=== PATIENT | female | born 1955 | race Asian ===

== ENCOUNTER → 2018-01-17 14:56 | Outpatient (CLI) | payer MEDICARE, SELFPAY ==
[2018-01-17 16:02] LABS: Alanine Aminotransferase 20 IU/L (9-52); Aspartate Aminotransferase 31 IU/L (14-36); BUN Creatinine Ratio 17.1 (6-22); Blood Urea Nitrogen 12 mg/dL (7-17); Calcium 9.6 mg/dL (8.4-10.2); Carbon Dioxide 27 mmol/L (22-32); Chloride 101 mmol/L (98-107); Cholesterol 109 mg/dL (140-199); Estimated Glomerular Filt Rate > 60.0 mL/min (>60); Glucose 83 mg/dL (80-110); HDL Cholesterol 40 mg/dL (40-60); HEMOLYSIS < 15 (0-50); LDL Cholesterol Calculated 49 mg/dL (<100); Potassium 4.2 mmol/L (3.4-5.1); Sodium 140 mmol/L (137-145); Triglycerides 99 mg/dL (35-150)
[2018-01-17 16:32] LABS: TSH w/ Reflex to FT4 1.41 uIU/mL (0.47-4.68)
== END ==
PROVIDERS: Visit Provider Internal Medicine
DX: I10 Essential (primary) hypertension (principal); E03.9 Hypothyroidism, unspecified; E78.5 Hyperlipidemia, unspecified
CPT/HCPCS: 36415; 80048; 80061; 84443; 84450; 84460

== ENCOUNTER 2018-09-08 15:17 | Inpatient (IN) | payer OTHER, SELFPAY ==
[2018-09-08] VITALS (10 sets, daily range): BP systolic 134–167; BP diastolic 66–96; PULSE 70–88; RESP 14–20; O2SAT 96–98; BMI 21.3
--- NOTE | 2018-09-08 | DI.MRI.S_ITS ---
PROCEDURE: MR STROKE Pre- and post-contrast brain MRI, non-contrast brain MR angiogram, pre- and postcontrast neck MR angiogram INDICATIONS: Left sided numbness TECHNIQUE: Brain: Noncontrast axial T1 spin echo, axial T2 fast spin echo, sagittal and axial FLAIR, coronal T2 fast spin echo, axial gradient echo, axial diffusion and ADC through the brain. After the administration of contrast, axial 3D VIBE of the cranial vasculature and brain. Brain MRA: Non-contrast 3-D time of flight MR angiogram, with multiple qkljyob-pavcyksun-czptaffymt (MIP) reformats performed. Neck MRA: Axial and sagittal TruFISP through the neck. Coronal dynamic MR angiogram during administration of contrast in the arterial and venous phases, with 3-dimenstional stxxpgl-fzlxvovko-fckdpbiulw (MIP) reformats constructed from subtraction images. COMPARISON: None. FINDINGS: Image quality: Excellent. BRAIN: CSF spaces: Ventricles are normal in size and shape. Basal cisterns are patent. No extra-axial fluid collections. Brain: No intracranial bleeds or mass effects. Carbone-white matter interface is normal. Diffusion weighted images show no left-sided acute ischemic insults, but there is a 4 x 6 mm focus of acute or subacute ischemic injury involving the deep white matter of the lentiform nuclei on the right, best seen on diffusion pulse sequence series 26 image 61. More anteriorly a chronic-appearing small lacunar infarction in this area is seen, and these areas show no evidence of mass effect or blood products.. Brainstem appears normal. Normal intravascular flow voids are present. No abnormal intracranial enhancement. Skull and face: Calvarial marrow signal is normal. Orbits appear normal. Sinuses: Sinuses and mastoids are clear. BRAIN MR ANGIOGRAM: Anterior circulation: Intracranial internal carotid arteries are normal in size and enhancement. The flow within the paired anterior cerebral arteries is normal and symmetric. The flow within the middle cerebral arteries is normal and symmetric. The anterior communicating artery is seen. No stenoses, occlusions, or aneurysms. Posterior circulation: The visualized portions of the vertebral arteries demonstrate normal caliber, and join to form a normal appearing basilar artery. The flow within the posterior cerebral arteries is normal and symmetric. No stenoses, occlusions, or aneurysms. NECK MR ANGIOGRAM: Carotids: Great vessels demonstrate a conventional anatomy as they arise from the aortic arch. The origins of the common carotid arteries appear patent. The calibers and courses of both common carotid arteries are normal. The bifurcation regions appear normal bilaterally. The internal carotid arteries demonstrate normal course and caliber. Posterior circulation: The origins of the vertebral arteries appear patent. More superior portions of both vertebral arteries demonstrate normal course and caliber, and join to form a normal appearing basilar artery. Miscellaneous: Subclavian arteries appear patent. Pre-contrast images through the neck show no soft tissue abnormalities. IMPRESSION: BRAIN MRI: Mild/moderate microvascular atherosclerotic change noted within the deep white matter of the right hemisphere, lentiform nuclei region, where a 4 x 6 mm focus of acute or subacute ischemic injury is present as discussed above. A chronic small additional lacunar infarction on the right is noted more anteriorly, and the appearance is most consistent with primary microvascular atherosclerotic change rather than embolic disease. No mass effect or hemorrhage associated. BRAIN MR ANGIOGRAM: Normal intracranial MR angiogram, normal anatomic variant left vertebral artery dominant into the posterior circulation. NECK MR ANGIOGRAM: No carotid stenosis, great vessels appear intact and patent. Dictated by: Russ Swartz M.D. on 09/09/2018 at 15:56 Approved by: Russ Swartz M.D. on 09/09/2018 at 16:00
--- NOTE | 2018-09-08 | DI.ECHO.S_ITS ---
[facility]---------+ [facility] +---------+ : : [address] [place] : : : : [id number] : : : : Phone: [phone]+ Echocardiogram Report + + :Name: THERESE BABIN Study Date: 09/09/2018 Height: 61 in : :[facility] Exam Location: [facility] Weight: 128 lb : : Gender: Female BSA: 1.6 m2 : :: 1955 Age: 62 yrs BP: 168/86 mmHg: :Reason For Study: CVA : :Ordering Physician: Lois : :Hospitalist Performed By: Peggy Page : :Referring: Nisha FRANKLIN E : + + Interpretation Summary Normal left ventricle size with ejection fraction 65-70%. Severely dilated left atrium. Mild mitral regurgitation. Injection of contrast documented no interatrial shunt. Procedure: A two-dimensional transthoracic echocardiogram with color flow and Doppler was performed. The study quality was technically adequate. There is no prior echocardiogram noted for this patient. The subcostal views were difficult to obtain and are suboptimal in quality. A saline contrast injection was performed to assess for cardiac shunting. The patient was in normal sinus rhythm during the exam. Left Ventricle: The left ventricle is normal in size. Left ventricular wall thickness is normal. The ejection fraction is estimated to be 65-70%. There are no focal wall motion abnormalities. Diastolic parameters suggest probable normal left ventricular diastolic function and normal filling pressures. Right Ventricle: The right ventricle is normal in size and function. Atria: The left atrium is severely dilated. Right atrial size is normal. There is no Doppler evidence for an interatrial shunt. Injection of contrast documented no interatrial shunt. Mitral Valve: The mitral valve is normal in structure and function. There is mild mitral regurgitation. Aortic Valve: The aortic valve is trileaflet. The aortic valve opens well. There is trace aortic regurgitation. Tricuspid Valve: The tricuspid valve is normal in structure and function. There is trace tricuspid regurgitation. Pulmonary artery pressures cannot be estimated because of the lack of a measurable TR jet velocity. Pulmonic Valve: The pulmonic valve is not well visualized. There is trace pulmonic regurgitation. Great Vessels: The aortic root is normal size. The ascending aorta is normal in size. The pulmonary artery is not well visualized, but is probably normal size. The inferior vena cava was not visualized. Pericardium/ Pleura There is no pericardial effusion. There is no pleural effusion. MMode/2D Measurements & Calculations LVIDd: 4.0 cm Ao root diam: 3.0 cm LVIDs: 2.0 cm asc Aorta Diam: 3.0 cm FS: 48.6 % EPSS: 0.05 cm IVSd: 0.67 cm LVPWd: 0.81 cm LV garcia. diameter/BSA (cm/m^2): 2.5 LV sys. diameter/BSA (cm/m^2): 1.3 LA A2 area: 24.4 cm2 RA long axis: 5.1 cm LA A4 area: 21.2 cm2 RA area: 15.0 cm2 LA length (vol): 5.3 cm RA vol: 37.8 ml LA vol: 82.9 ml RA : 24.2 ml/m2 LA vol index: 53.0 ml/m2 RVD1 (basal): 3.3 cm TAPSE: 2.0 cm Doppler Measurements & Calculations Ao V2 max: 95.4 cm/sec LVOT Max Luis Carlos: 98.8 cm/sec Ao V2 mean: 70.3 cm/sec LV V1 max P.9 mmHg Ao max P.6 mmHg LV V1 VTI: 19.9 cm Ao mean P.1 mmHg sev ratio: 0.96 Ao V2 VTI: 20.7 cm MV E max luis carlos: 69.2 cm/sec PA V2 max: 68.7 cm/sec MV A max luis carlos: 74.7 cm/sec PA V2 mean: 46.2 cm/sec MV E/A: 0.93 PA mean P.94 mmHg Med Peak E' Luis Carlos: 4.6 cm/sec PA pr(Accel): 9.1 mmHg E/E' med: 14.9 PA Accel Time: 0.04 sec Lat Peak E' Luis Carlos: 9.0 cm/sec E/E' lat: 7.7 E/e' average: 11.3 MV dec time: 0.12 sec MV P1/2t: 41.5 msec MV P1/2t max luis carlos: 73.7 cm/sec MVA(P1/2t): 5.3 cm2 Electronically signed by: Ashlie Mcdermott on Reading Physician:09/09/2018 12:43 PM
--- NOTE | 2018-09-08 15:30 | ED.NEUROSD ---
HPI - Neuro Symptoms/Deficit General Chief Complaint: Neuro Symptoms/Deficit Stated Complaint: right side face and body numbness and tingling Time Seen by Provider: 09/08/18 15:20 Source: patient and family Mode of arrival: wheelchair Limitations: no limitations History of Present Illness HPI Narrative: 62F non smoker with history of CVA presents with L facial weakness, numbness, and L arm / L leg numbness and tingling since yesterday morning. She denies any difficulty with vision speech or ambulation. Her last stroke was in 1999 and only symptoms were of left-sided facial numbness and tingling. There was a delay in her presentation as she seems to be suffering from some depression and rarely gets out of bed and so it was unclear until today that she had ongoing symptoms Onset (ago): hour(s) Timing confirmed by: spouse Location: left face, left arm and left leg History of same: Yes Severity: mild Quality: numb and tingling Relieving factors: none Exacerbating factors: none On Anticoagulants: No Associated symptoms: denies other symptoms Treatments Prior to Arrival: none Related Data Home Medications Medication Instructions Recorded Confirmed ASPIRIN (Aspirin Low Dose) 81 mg PO DAILY #0 03/16/08 09/08/18 calcium carbonate 1,500 mg PO QDAY #0 01/07/16 loratadine [Claritin] 10 mg PO QDAY #0 tab 01/07/16 losartan 25 mg PO DAILY 09/08/18 09/08/18 mirtazapine 15 mg PO DAILY 09/08/18 09/08/18 Previous Rx's Medication Instructions Recorded omeprazole 20 mg capsule,delayed 20 mg PO QDAY #30 cap 11/20/17 release bupropion HCl SR 100 mg tablet,12 100 mg PO Q DAY #30 tab 11/22/17 hr sustained-release diltiazem CD 120 mg 120 mg PO QDAY #30 cap 11/29/17 capsule,extended release 24 hr gemfibrozil 600 mg tablet 600 mg PO BIDAC #60 tab 12/17/17 oxybutynin chloride ER 15 mg 15 mg PO QDAY #30 tab 12/31/17 tablet,extended release 24 hr levothyroxine 75 mcg tablet 75 mcg PO QAM #30 tab 02/25/18 hydroxyzine pamoate 25 mg capsule 25 mg PO .hs #30 cap 05/13/18 Allergies Allergy/AdvReac Type Severity Reaction Status Date / Time codeine [CODEINE] Allergy Severe ANAPHYLAXIS Verified 09/08/18 15:49 hazelnut Allergy Severe Anaphylaxis Verified 09/08/18 15:43 Review of Systems Constitutional Denies chills, Denies fever(s), Denies lethargy and Denies weakness Eyes Denies change in vision, Denies eye discharge, Denies irritation and Denies loss of vision ENT Ears, Nose, Mouth, and Throat: Denies change in voice, Denies neck pain and Denies sore throat Cardiovascular Denies chest pain, Denies irregular heart rhythm, Denies lightheadedness, Denies palpitations, Denies dyspnea, Denies dyspnea on exertion and Denies orthopnea Respiratory Denies cough, Denies dyspnea, Denies dyspnea on exertion and Denies wheezing Gastrointestinal Gastrointestinal: Denies abdominal pain, Denies change in bowel habits, Denies diarrhea, Denies nausea and Denies vomiting Genitourinary Denies hematuria, Denies flank pain, Denies urinary incontinence and Denies urinary urgency Musculoskeletal Denies neck pain Integumentary/Breasts Denies pruritus, Denies erythema, Denies rash and Denies wounds Neurologic Denies confusion, Denies loss of vision, Reports sensory deficit and Denies weakness Psychiatric Denies anxiety, Denies confusion, Denies depression, Denies homicidal ideation and Denies suicidal ideation Endocrine Denies palpitations Hematologic/Lymphatic Denies easy bruising Allergic/Immunologic Denies wheezing Exam Narrative Exam Narrative: GENERAL: Pleasant 62-year-old female has a rather flat affect, and mild distress HEAD: Atraumatic. Normocephalic. No temporal or scalp tenderness. EYES: Pupils equal round and reactive. Extraocular motions intact. No scleral icterus. No injection or drainage. ENT: Nose without bleeding, purulent drainage or septal hematoma. Throat without erythema, tonsillar hypertrophy or exudate. Uvula midline. Airway patent. NECK: Trachea midline. No JVD or lymphadenopathy. Supple, nontender, no meningeal signs. CARDIOVASCULAR: Regular rate and rhythm without murmurs, gallops, or rubs. RESPIRATORY: Clear to auscultation. Breath sounds equal bilaterally. No wheezes, rales, or rhonchi. GASTROINTESTINAL: Abdomen soft, non-tender, nondistended. No hepato-splenomegaly, or palpable masses. No guarding. EXTREMITIES: No clubbing, cyanosis, or edema. No joint tenderness, effusion, or edema noted. BACK: Nontender without deformity or crepitance. No flank tenderness. NEURO: AOx3. SKIN: No rash or erythema. Initial Vital Signs Initial Vital Signs: Vital Signs Pulse Rate 88 09/08/18 15:23 Respiratory Rate 20 09/08/18 15:23 Blood Pressure 167/74 H 09/08/18 15:23 Pulse Oximetry 97 09/08/18 15:23 Scores NIH Stroke Scale Level of Conciousness: Alert, keenly responsive Ask month/age: Answers both questions correctly. Open/close eyes, close hand: Performs both tasks correctly Best gaze horizontal: Normal Visual mae: No visual loss Facial palsy: Normal symetrical movement Left arm drift: No drift for full 10 sec Right arm drift: No drift for full 10 sec Left leg drift: No drift for full 10 sec Right leg drift: No drift for full 10 sec Limb ataxia: Absent Sensory on face/arms/legs: Mild to moderate sensory loss, can tell touch Best language: No aphasia, normal Dysarthria: Normal Extinction or inattention: No abnormality Total NIH Stroke scale score: 1 Course Orders Ordered: ED Orders 09/08/18 15:39 CT head/brain wo con Stat Urine Drug Screen, Rapid Stat EKG-12 Lead Stat 09/08/18 15:42 Basic Metabolic Panel Stat Complete Blood Count AUTO DIFF Stat Partial Thromboplastin Time Stat Prothrombin Time INR Stat Sodium Chloride (Normal Saline 0.9%) 1,000 mls @ 150 mls/hr IV CONT ADILENE Last Admin: 09/08/18 16:08 Dose: 150 mls/hr Discontinued Medications Aspirin (Aspirin) 325 mg PO NOW ONE Stop: 09/08/18 16:34 Last Admin: 09/08/18 16:44 Dose: 325 mg Vital Signs - 8 hr 09/08/18 15:23 09/08/18 15:34 09/08/18 16:12 Pulse Rate 88 80 78 Respiratory Rate 20 16 18 Blood Pressure 167/74 H Blood Pressure [Right Arm] 167/74 H 163/69 H Pulse Oximetry 97 96 97 MDM - Neuro Symptoms/Deficit Lab Data Attestation: I reviewed the patient's lab results. Result diagrams: 09/08/18 15:42 09/08/18 15:42 Lab Results 09/08/18 09/08/1809/08/19 Range/Units 15:42 15:42 15:42 WBC 6.0 (4.5-11.0) X10^3/uL RBC 5.29 H (4.0-5.2) X10^6/uL Hgb 13.5 (12.0-16.0) g/dL Hct 41.2 (36-46) % MCV 77.9 L (80-100) fL MCH 25.5 L (26-34) PG MCHC 32.8 (30-36) % RDW 14.6 (11.6-14.8) % Plt Count 262 (150-400) X10^3/uL Neut % (Auto) 37.8 L (50-75) % Lymph % (Auto) 42.5 H (25-40) % Sanborn % (Auto) 9.1 (3-14) % Eos % (Auto) 8.8 H (2-4) % Baso % (Auto) 1.8 (0-2) % Neut # (Auto) 2300 (0030-9973) /uL Lymph # (Auto) 2600 (9125-8286) /uL Sanborn # (Auto) 500 (0-900) /uL Eos # (Auto) 500 H (0-450) /uL Baso # (Auto) 100 (0-100) /uL PT 14.0 H (10.1-12.7) SECONDS INR 1.2 (0.9-1.3) APTT 41 H (26.4-36.2) SECONDS Sodium 138 (137-145) mmol/L Potassium 3.9 (3.4-5.1) mmol/L Chloride 100 (98-107) mmol/L Carbon Dioxide 30 (22-32) mmol/L BUN 15 (7-17) mg/dL Creatinine 0.60 (0.52-1.04) mg/dL Estimated GFR > 60.0 (>60) mL/min BUN/Creatinine Ratio 25.0 H (6-22) Glucose 80 (80-110) mg/dL Calcium 9.6 (8.4-10.2) mg/dL Imaging Data CT scan - head: Attestation: I personally reviewed and interpreted this imaging study as follows: Radiologist's impression: [address] [address] [address] Scan Report Signed Patient: Tricia Rodriguez HMR#: [id number] : 7Acct:[id number] Age/Sex: 62 / FDate of Service: 09/08/18 Loc: ED Accession Number: [id number] Procedure: CT head/brain wo con Ordering Provider: Mason Cotton D.O. PROCEDURE: CT HEAD/BRAIN WO CON INDICATIONS: stroke. L facial numbness, L arm/L leg numbness TECHNIQUE: Noncontrast 4.5 mm thick angled axial sections acquired from the foramen magnum to the vertex, with coronal and sagittal reformats. For radiation dose reduction, the following was used: automated exposure control, adjustment of mA and/or kV according to patient size. COMPARISON: None. FINDINGS: Image quality: Excellent. CSF spaces: Basal cisterns are patent. No extra-axial fluid collections. Ventricles are normal in size and shape. Brain: No midline shift. No intracranial masses or hemorrhage. There is a 1.0 cm hypoattenuating focus within the right basal ganglia at the anterior aspect of the right thalamus and right internal capsule on axial image 14 of series 2, and 3 0.5 cm hypoechoic focus in the left basal ganglia near the left globus pallidus on axial image 13 of series 2, which are both present on comparison brain MRI of 09/18/2011. There are subtle high attenuation foci measuring up to 5 mm in size in the subcortical white matter of the left greater than right frontal lobes, with examples seen on axial image 18 of series 2. Skull and face: Calvarium and visualized facial bones are intact, without suspicious lesions. Sinuses: Visualized sinuses and mastoids are clear. IMPRESSION: 1. Subtle subcentimeter hyperattenuating foci in the subcortical white matter of the left greater than right frontal lobes. These may represent artifact or small volume petechial hemorrhage. Consider followup head CT to demonstrate stability or brain MRI if there is continued clinical concern. 2. Chronic bilateral basal ganglia lacunar infarcts are present on comparison exams. Findings discussed with referring provider Dr. Mason Cotton by telephone by Dr. Whittington at 4:15 PM on 09/08/2018. Dictated by: Vj Whittington M.D. on 09/08/2018 at 16:06 Approved by: Vj Whittington M.D. on 09/08/2018 at 16:19 Discharge Plan Departure Patient Disposition: Admitted as Observation Clinical Impression: Cerebrovascular accident Prescriptions: No Action ASPIRIN (Aspirin Low Dose) 81 mg PO DAILY Qty: 0 RF: 0 calcium carbonate 500 MG tablet 1,500 mg PO QDAY Qty: 0 RF: 0 loratadine [Claritin] 10 MG tablet 10 mg PO QDAY Qty: 0 RF: 0 omeprazole 20 mg capsule,delayed release(DR/EC) 20 mg PO QDAY Qty: 30 RF: 2 bupropion HCl [Wellbutrin SR] 100 mg tablet extended release 12 hr 100 mg PO Q DAY Qty: 30 RF: 0 diltiazem HCl 120 mg capsule,extended release 24hr 120 mg PO QDAY Qty: 30 RF: 0 gemfibrozil 600 mg tablet 600 mg PO BIDAC Qty: 60 RF: 1 oxybutynin chloride [Ditropan XL] 15 mg tablet extended release 24hr 15 mg PO QDAY Qty: 30 RF: 5 levothyroxine [Synthroid] 75 mcg tablet 75 mcg PO QAM Qty: 30 RF: 2 hydroxyzine pamoate 25 mg capsule 25 mg PO .hs Qty: 30 RF: 0 mirtazapine 15 mg tablet 15 mg PO DAILY RF: 0 losartan 25 mg PO DAILY RF: 0 Referrals: Jayleen Sheth DO [Primary Care Provider] -
--- NOTE | 2018-09-08 15:31 | PC.NURSE ---
pt arrived in room 11, ambulate with cane along with spouse reports, left upper lip with numbness, left arm/leg pins and needle sxs , since Sunday denies injuries. hx of cva 1999 with facial deficit, htn,high chol,high thyroid. spouse reports, pt since cva pt has been living seditary for the past 3 years. pt in between primary, Dr. Omer from [place].
--- NOTE | 2018-09-08 15:36 | ED_ITS ---
HPI - Neuro Symptoms/Deficit General Chief Complaint: Neuro Symptoms/Deficit Stated Complaint: right side face and body numbness and tingling Time Seen by Provider: 09/08/18 15:20 Source: patient and family Mode of arrival: wheelchair Limitations: no limitations History of Present Illness HPI Narrative: 62F non smoker with history of CVA presents with L facial weakness, numbness, and L arm / L leg numbness and tingling since yesterday morning. She denies any difficulty with vision speech or ambulation. Her last stroke was in 1999 and only symptoms were of left-sided facial numbness and tingling. There was a delay in her presentation as she seems to be suffering from some depression and rarely gets out of bed and so it was unclear until today that she had ongoing symptoms Onset (ago): hour(s) Timing confirmed by: spouse Location: left face, left arm and left leg History of same: Yes Severity: mild Quality: numb and tingling Relieving factors: none Exacerbating factors: none On Anticoagulants: No Associated symptoms: denies other symptoms Treatments Prior to Arrival: none Related Data Home Medications Medication Instructions Recorded Confirmed ASPIRIN (Aspirin Low Dose) 81 mg PO DAILY #0 03/16/08 09/08/18 calcium carbonate 1,500 mg PO QDAY #0 01/07/16 loratadine [Claritin] 10 mg PO QDAY #0 tab 01/07/16 losartan 25 mg PO DAILY 09/08/18 09/08/18 mirtazapine 15 mg PO DAILY 09/08/18 09/08/18 Previous Rx's Medication Instructions Recorded omeprazole 20 mg capsule,delayed 20 mg PO QDAY #30 cap 11/20/17 release bupropion HCl SR 100 mg tablet,12 100 mg PO Q DAY #30 tab 11/22/17 hr sustained-release diltiazem CD 120 mg 120 mg PO QDAY #30 cap 11/29/17 capsule,extended release 24 hr gemfibrozil 600 mg tablet 600 mg PO BIDAC #60 tab 12/17/17 oxybutynin chloride ER 15 mg 15 mg PO QDAY #30 tab 12/31/17 tablet,extended release 24 hr levothyroxine 75 mcg tablet 75 mcg PO QAM #30 tab 02/25/18 hydroxyzine pamoate 25 mg capsule 25 mg PO .hs #30 cap 05/13/18 Allergies Allergy/AdvReac Type Severity Reaction Status Date / Time codeine [CODEINE] Allergy Severe ANAPHYLAXIS Verified 09/08/18 15:49 hazelnut Allergy Severe Anaphylaxis Verified 09/08/18 15:43 Review of Systems Constitutional Denies chills, Denies fever(s), Denies lethargy and Denies weakness Eyes Denies change in vision, Denies eye discharge, Denies irritation and Denies loss of vision ENT Ears, Nose, Mouth, and Throat: Denies change in voice, Denies neck pain and Denies sore throat Cardiovascular Denies chest pain, Denies irregular heart rhythm, Denies lightheadedness, Denies palpitations, Denies dyspnea, Denies dyspnea on exertion and Denies orthopnea Respiratory Denies cough, Denies dyspnea, Denies dyspnea on exertion and Denies wheezing Gastrointestinal Gastrointestinal: Denies abdominal pain, Denies change in bowel habits, Denies diarrhea, Denies nausea and Denies vomiting Genitourinary Denies hematuria, Denies flank pain, Denies urinary incontinence and Denies urinary urgency Musculoskeletal Denies neck pain Integumentary/Breasts Denies pruritus, Denies erythema, Denies rash and Denies wounds Neurologic Denies confusion, Denies loss of vision, Reports sensory deficit and Denies weakness Psychiatric Denies anxiety, Denies confusion, Denies depression, Denies homicidal ideation and Denies suicidal ideation Endocrine Denies palpitations Hematologic/Lymphatic Denies easy bruising Allergic/Immunologic Denies wheezing Exam Narrative Exam Narrative: GENERAL: Pleasant 62-year-old female has a rather flat affect, and mild distress HEAD: Atraumatic. Normocephalic. No temporal or scalp tenderness. EYES: Pupils equal round and reactive. Extraocular motions intact. No scleral icterus. No injection or drainage. ENT: Nose without bleeding, purulent drainage or septal hematoma. Throat without erythema, tonsillar hypertrophy or exudate. Uvula midline. Airway patent. NECK: Trachea midline. No JVD or lymphadenopathy. Supple, nontender, no meningeal signs. CARDIOVASCULAR: Regular rate and rhythm without murmurs, gallops, or rubs. RESPIRATORY: Clear to auscultation. Breath sounds equal bilaterally. No wheezes, rales, or rhonchi. GASTROINTESTINAL: Abdomen soft, non-tender, nondistended. No hepato-splen omegaly, or palpable masses. No guarding. EXTREMITIES: No clubbing, cyanosis, or edema. No joint tenderness, effusion, or edema noted. BACK: Nontender without deformity or crepitance. No flank tenderness. NEURO: AOx3. SKIN: No rash or erythema. Initial Vital Signs Initial Vital Signs: Vital Signs Pulse Rate 88 09/08/18 15:23 Respiratory Rate 20 09/08/18 15:23 Blood Pressure 167/74 H 09/08/18 15:23 Pulse Oximetry 97 09/08/18 15:23 Scores NIH Stroke Scale Level of Conciousness: Alert, keenly responsive Ask month/age: Answers both questions correctly. Open/close eyes, close hand: Performs both tasks correctly Best gaze horizontal: Normal Visual mae: No visual loss Facial palsy: Normal symetrical movement Left arm drift: No drift for full 10 sec Right arm drift: No drift for full 10 sec Left leg drift: No drift for full 10 sec Right leg drift: No drift for full 10 sec Limb ataxia: Absent Sensory on face/arms/legs: Mild to moderate sensory loss, can tell touch Best language: No aphasia, normal Dysarthria: Normal Extinction or inattention: No abnormality Total NIH Stroke scale score: 1 Course Orders Ordered: ED Orders 09/08/18 15:39 CT head/brain wo con Stat Urine Drug Screen, Rapid Stat EKG-12 Lead Stat 09/08/18 15:42 Basic Metabolic Panel Stat Complete Blood Count AUTO DIFF Stat Partial Thromboplastin Time Stat Prothrombin Time INR Stat Sodium Chloride (Normal Saline 0.9%) 1,000 mls @ 150 mls/hr IV CONT ADILENE Last Admin: 09/08/18 16:08 Dose: 150 mls/hr Discontinued Medications Aspirin (Aspirin) 325 mg PO NOW ONE Stop: 09/08/18 16:34 Last Admin: 09/08/18 16:44 Dose: 325 mg Vital Signs - 8 hr 09/08/18 15:23 09/08/18 15:34 09/08/18 16:12 Pulse Rate 88 80 78 Respiratory Rate 20 16 18 Blood Pressure 167/74 H Blood Pressure [Right Arm] 167/74 H 163/69 H Pulse Oximetry 97 96 97 MDM - Neuro Symptoms/Deficit Lab Data Attestation: I reviewed the patient's lab results. Result diagrams: 09/08/18 15:42 09/08/18 15:42 Lab Results 0409/08/18 09/08/18 Range/Units 15:42 15:42 15:42 WBC 6.0 (4.5-11.0) X10^3/uL RBC 5.29 H (4.0-5.2) X10^6/uL Hgb 13.5 (12.0-16.0) g/dL Hct 41.2 (36-46) % MCV 77.9 L (80-100) fL MCH 25.5 L (26-34) PG MCHC 32.8 (30-36) % RDW 14.6 (11.6-14.8) % Plt Count 262 (150-400) X10^3/uL Neut % (Auto) 37.8 L (50-75) % Lymph % (Auto) 42.5 H (25-40) % [place] % (Auto) 9.1 (3-14) % Eos % (Auto) 8.8 H (2-4) % Baso % (Auto) 1.8 (0-2) % Neut # (Auto) 2300 (1894-6183) /uL Lymph # (Auto) 2600 (0916-2714) /uL [place] # (Auto) 500 (0-900) /uL Eos # (Auto) 500 H (0-450) /uL Baso # (Auto) 100 (0-100) /uL PT 14.0 H (10.1-12.7) SECONDS INR 1.2 (0.9-1.3) APTT 41 H (26.4-36.2) SECONDS Sodium 138 (137-145) mmol/L Potassium 3.9 (3.4-5.1) mmol/L Chloride 100 (98-107) mmol/L Carbon Dioxide 30 (22-32) mmol/L BUN 15 (7-17) mg/dL Creatinine 0.60 (0.52-1.04) mg/dL Estimated GFR > 60.0 (>60) mL/min BUN/Creatinine Ratio 25.0 H (6-22) Glucose 80 (80-110) mg/dL Calcium 9.6 (8.4-10.2) mg/dL Imaging Data CT scan - head: Attestation: I personally reviewed and interpreted this imaging study as follows: Radiologist's impression: [address] [address] [address] Scan Report Signed Patient: Tricia Rodriguez R#: [id number] : 7Acct:[id number] Age/Sex: 62 / FDate of Service: 09/08/18 Loc: ED Accession Number: [id number] Procedure: CT head/brain wo con Ordering Provider: Mason Cotton D.O. PROCEDURE: CT HEAD/BRAIN WO CON INDICATIONS: stroke. L facial numbness, L arm/L leg numbness TECHNIQUE: Noncontrast 4.5 mm thick angled axial sections acquired from the foramen magnum to the vertex, with coronal and sagittal reformats. For radiation dose reduction, the following was used: automated exposure control, adjustment of mA and/or kV according to patient size. COMPARISON: None. FINDINGS: Image quality: Excellent. CSF spaces: Basal cisterns are patent. No extra-axial fluid collections. Ventricles are normal in size and shape. Brain: No midline shift. No intracranial masses or hemorrhage. There is a 1.0 cm hypoattenuating focus within the right basal ganglia at the anterior aspect of the right thalamus and right internal capsule on axial image 14 of series 2, and 3 0.5 cm hypoechoic focus in the left basal ganglia near the left globus pallidus on axial image 13 of series 2, which are both present on comparison brain MRI of 09/18/2011. There are subtle high attenuation foci measuring up to 5 mm in size in the subcortical white matter of the left greater than right frontal lobes, with examples seen on axial image 18 of series 2. Skull and face: Calvarium and visualized facial bones are intact, without s uspicious lesions. Sinuses: Visualized sinuses and mastoids are clear. IMPRESSION: 1. Subtle subcentimeter hyperattenuating foci in the subcortical white matter of the left greater than right frontal lobes. These may represent artifact or small volume petechial hemorrhage. Consider followup head CT to demonstrate stability or brain MRI if there is continued clinical concern. 2. Chronic bilateral basal ganglia lacunar infarcts are present on comparison exams. Findings discussed with referring provider Dr. Mason Cotton by telephone by Dr. Whittington at 4:15 PM on 09/08/2018. Dictated by: Vj Whittington M.D. on 09/08/2018 at 16:06 Approved by: Vj Whittington M.D. on 09/08/2018 at 16:19 Discharge Plan Departure Patient Disposition: Admitted as Observation Clinical Impression: Cerebrovascular accident Prescriptions: No Action ASPIRIN (Aspirin Low Dose) 81 mg PO DAILY Qty: 0 RF: 0 calcium carbonate 500 MG tablet 1,500 mg PO QDAY Qty: 0 RF: 0 loratadine [Claritin] 10 MG tablet 10 mg PO QDAY Qty: 0 RF: 0 omeprazole 20 mg capsule,delayed release(DR/EC) 20 mg PO QDAY Qty: 30 RF: 2 bupropion HCl [Wellbutrin SR] 100 mg tablet extended release 12 hr 100 mg PO Q DAY Qty: 30 RF: 0 diltiazem HCl 120 mg capsule,extended release 24hr 120 mg PO QDAY Qty: 30 RF: 0 gemfibrozil 600 mg tablet 600 mg PO BIDAC Qty: 60 RF: 1 oxybutynin chloride [Ditropan XL] 15 mg tablet extended release 24hr 15 mg PO QDAY Qty: 30 RF: 5 levothyroxine [Synthroid] 75 mcg tablet 75 mcg PO QAM Qty: 30 RF: 2 hydroxyzine pamoate 25 mg capsule 25 mg PO .hs Qty: 30 RF: 0 mirtazapine 15 mg tablet 15 mg PO DAILY RF: 0 losartan 25 mg PO DAILY RF: 0 Referrals: Jayleen Sheth DO [Primary Care Provider] -
--- NOTE | 2018-09-08 15:39 | DI.CT.S_ITS ---
PROCEDURE: CT HEAD/BRAIN WO CON INDICATIONS: stroke. L facial numbness, L arm/L leg numbness TECHNIQUE: Noncontrast 4.5 mm thick angled axial sections acquired from the foramen magnum to the vertex, with coronal and sagittal reformats. For radiation dose reduction, the following was used: automated exposure control, adjustment of mA and/or kV according to patient size. COMPARISON: None. FINDINGS: Image quality: Excellent. CSF spaces: Basal cisterns are patent. No extra-axial fluid collections. Ventricles are normal in size and shape. Brain: No midline shift. No intracranial masses or hemorrhage. There is a 1.0 cm hypoattenuating focus within the right basal ganglia at the anterior aspect of the right thalamus and right internal capsule on axial image 14 of series 2, and 3 0.5 cm hypoechoic focus in the left basal ganglia near the left globus pallidus on axial image 13 of series 2, which are both present on comparison brain MRI of 09/18/2011. There are subtle high attenuation foci measuring up to 5 mm in size in the subcortical white matter of the left greater than right frontal lobes, with examples seen on axial image 18 of series 2. Skull and face: Calvarium and visualized facial bones are intact, without suspicious lesions. Sinuses: Visualized sinuses and mastoids are clear. IMPRESSION: 1. Subtle subcentimeter hyperattenuating foci in the subcortical white matter of the left greater than right frontal lobes. These may represent artifact or small volume petechial hemorrhage. Consider followup head CT to demonstrate stability or brain MRI if there is continued clinical concern. 2. Chronic bilateral basal ganglia lacunar infarcts are present on comparison exams. Findings discussed with referring provider Dr. Mason Cotton by telephone by Dr. Whittington at 4:15 PM on 09/08/2018. Dictated by: Vj Whittington M.D. on 09/08/2018 at 16:06 Approved by: Vj Whittington M.D. on 09/08/2018 at 16:19
[2018-09-08 15:52] LABS: Add Manual Diff / Slide Review NO; Basophils Absolute Auto 100 /uL (0-100); Basophils Percent Auto 1.8 % (0-2); Eosinophils Absolute Auto 500 /uL (0-450); Eosinophils Percent Auto 8.8 % (2-4); Hematocrit 41.2 % (36-46); Hemoglobin 13.5 g/dL (12.0-16.0); Lymphocytes Absolute Auto 2600 /uL (1100-4500); Lymphocytes Percent Auto 42.5 % (25-40); Mean Corpuscular HGB Conc 32.8 % (30-36); Mean Corpuscular Hemoglobin 25.5 PG (26-34); Mean Corpuscular Volume 77.9 fL (80-100); Monocytes Absolute Auto 500 /uL (0-900); Monocytes Percent Auto 9.1 % (3-14); Neutrophils Absolute Auto 2300 /uL (1500-7000); Neutrophils Percent Auto 37.8 % (50-75); Platelet Count 262 X10^3/uL (150-400); Red Blood Cell Count 5.29 X10^6/uL (4.0-5.2); Red Cell Distribution Width 14.6 % (11.6-14.8)
[2018-09-08 15:57] LABS: INR 1.2 (0.9-1.3)
[2018-09-08 16:00] LABS: PTT Partial Thromboplastin Tim 41 SECONDS (26.4-36.2)
[2018-09-08 16:01] LABS: Blood Urea Nitrogen 15 mg/dL (7-17); Calcium 9.6 mg/dL (8.4-10.2); Carbon Dioxide 30 mmol/L (22-32); Chloride 100 mmol/L (98-107); Estimated Glomerular Filt Rate > 60.0 mL/min (>60); Glucose 80 mg/dL (80-110); HEMOLYSIS < 15 (0-50); Potassium 3.9 mmol/L (3.4-5.1); Sodium 138 mmol/L (137-145)
[2018-09-08] MEDS: SODIUM CHLORIDE 0.9% 1,000 ML 150 ML IV (16:08)
[2018-09-08] MEDS: ASPIRIN 325 MG TABLET PO (16:44)
--- NOTE | 2018-09-08 17:11 | PM.HP.1 ---
History of Present Illness Date Patient Seen: 09/08/18 Time Patient Seen: 17:22 Chief complaint: right side face and body numbness and tingling Narrative: This is a 62-year-old chronically ill female who presents with approximately 36 hours of left-sided tingling and numbness. She has been ?bed ridden,? for 15 years according to her . She explains that she becomes too tired to do much and so just stays in bed. At 1 point she was thought to have sarcoid but that was apparently ruled out. They do not remember any workup for myasthenia. Yesterday morning she apparently began feeling tingling and numbness on the entirety of her left arm and left leg along with a small area on the left lower lip. She did not mention it to her until today. She has a prior history of stroke that she says caused facial drooping, she can't remember which side, which she says was diagnosed by her chiropractor. This was in approximately 1999. She is treated for hypertension and hyperlipidemia, she also has a family history of stroke and heart disease in her father. There has been no headache, seizure activity, vomiting, trouble talking, trouble walking, trouble swallowing. She takes her blood pressure and cholesterol medicine faithfully. Her insurance, [employer], has forced her to change her primary care physician to a new physician in [place], an hours drive away, who she has not seen yet, Dr. Samuel Burks. The head CT suggests a possible hyper attenuating foci in the bilateral frontal lobes. There are also bilateral chronic lacunar infarcts. Patient History Medical History Fatigue (Acute) Hypothyroidism (acquired) (Acute) CVA (cerebral vascular accident) (Acute) Insomnia (Acute) Mixed hyperlipidemia (Acute) Family & Social History Family History (Updated 09/08/18 @ 17:13 by Nisha Alexis MD) Father CVA (cerebral vascular accident) CAD (coronary artery disease) Mother Thyroid cancer Social History: She does not smoke cigarettes, drink alcohol or use marijuana and other drugs. 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 Her is present. Meds Home Medications Medication Instructions Recorded Confirmed Type ASPIRIN (Aspirin Low Dose) 81 mg PO DAILY #0 03/16/08 09/08/18 History calcium carbonate 1,500 mg PO QDAY #0 01/07/16 History loratadine [Claritin] 10 mg PO QDAY #0 tab 01/07/16 History omeprazole 20 mg capsule,delayed 20 mg PO QDAY #30 cap 11/20/17 09/08/18 Rx release bupropion HCl SR 100 mg tablet,12 100 mg PO Q DAY #30 tab 11/22/17 Rx hr sustained-release diltiazem CD 120 mg 120 mg PO QDAY #30 cap 11/29/17 Rx capsule,extended release 24 hr gemfibrozil 600 mg tablet 600 mg PO BIDAC #60 tab 12/17/17 Rx oxybutynin chloride ER 15 mg 15 mg PO QDAY #30 tab 12/31/17 09/08/18 Rx tablet,extended release 24 hr levothyroxine 75 mcg tablet 75 mcg PO QAM #30 tab 02/25/18 09/08/18 Rx hydroxyzine pamoate 25 mg capsule 25 mg PO .hs #30 cap 05/13/18 09/08/18 Rx losartan 25 mg PO DAILY 09/08/18 09/08/18 History mirtazapine 15 mg PO DAILY 09/08/18 09/08/18 History Allergies Allergy/AdvReac Type Severity Reaction Status Date / Time codeine [CODEINE] Allergy Severe ANAPHYLAXIS Verified 09/08/18 15:49 hazelnut Allergy Severe Anaphylaxis Verified 09/08/18 15:43 Review of Systems Review of Systems Positive for fatigue, numbness and tingling on the left side of her body and left lip, insomnia. Negative for fevers, chills, sweats, coughing, chest pain, abdominal pain, nausea, vomiting, diarrhea, bleeding, dysuria, rash, joint pain, seizures, headaches, trouble talking, new allergies. Exam Vital Signs (past 8 hours): - 09/08/18 15:23 09/08/18 15:34 09/08/18 16:12 Pulse Rate 88 80 78 Respiratory Rate 20 16 18 Blood Pressure 167/74 H Blood Pressure [Right Arm] 167/74 H 163/69 H Pulse Oximetry 97 96 97 09/08/18 16:30 Pulse Rate 78 Respiratory Rate 18 Blood Pressure Blood Pressure [Right Arm] 156/69 H Pulse Oximetry 98 Oxygen Delivery Method Room Air Narrative Exam Narrative: She is alert and oriented x3, in no apparent distress. She has a very flat affect consistent with frontal lobe lesions, depression, chronic fatigue. Pupils are equally round and reactive to light and accommodation. Extraocular muscles are intact. Sclerae are pink and nonicteric. Throat looks normal. No lymph nodes are felt head, neck, supraclavicular area. There is no thyromegaly. JVD is less than 6 cm. No carotid bruits are heard. Heart is regular rate and rhythm without murmur. Lungs are clear to auscultation bilaterally. Abdomen is soft, bowel sounds positive, nontender, no organomegaly. Extremities have no ankle edema. Skin has no rash or jaundice. Neuro exam. Cranial nerves 2-12 tested intact. Motor function is 5/5 throughout without lateralizing deficit. DTRs are symmetric bilaterally. Babinski's are downgoing bilaterally. The patient is too fatigued to stand up, test balance etc. There is no objective difference in sensation but the patient describes a very small area of left lower lip numbness to touch and diffuse left arm and left leg numbness to touch along with tingling. Objective Imaging CT scan - head: Radiologist's impression: PROCEDURE: CT HEAD/BRAIN WO CON INDICATIONS: stroke. L facial numbness, L arm/L leg numbness TECHNIQUE: Noncontrast 4.5 mm thick angled axial sections acquired from the foramen magnum to the vertex, with coronal and sagittal reformats. For radiation dose reduction, the following was used: automated exposure control, adjustment of mA and/or kV according to patient size. COMPARISON: None. FINDINGS: Image quality: Excellent. CSF spaces: Basal cisterns are patent. No extra-axial fluid collections. Ventricles are normal in size and shape. Brain: No midline shift. No intracranial masses or hemorrhage. There is a 1.0 cm hypoattenuating focus within the right basal ganglia at the anterior aspect of the right thalamus and right internal capsule on axial image 14 of series 2, and 3 0.5 cm hypoechoic focus in the left basal ganglia near the left globus pallidus on axial image 13 of series 2, which are both present on comparison brain MRI of 09/18/2011. There are subtle high attenuation foci measuring up to 5 mm in size in the subcortical white matter of the left greater than right frontal lobes, with examples seen on axial image 18 of series 2. Skull and face: Calvarium and visualized facial bones are intact, without suspicious lesions. Sinuses: Visualized sinuses and mastoids are clear. IMPRESSION: 1. Subtle subcentimeter hyperattenuating foci in the subcortical white matter of the left greater than right frontal lobes. These may represent artifact or small volume petechial hemorrhage. Consider followup head CT to demonstrate stability or brain MRI if there is continued clinical concern. 2. Chronic bilateral basal ganglia lacunar infarcts are present on comparison exams. Findings discussed with referring provider Dr. Mason Cotton by telephone by Dr. Whittington at 4:15 PM on 09/08/2018. Dictated by: Vj Whittington M.D. on 09/08/2018 at 16:06 Labs Result Diagrams: 09/08/18 15:42 09/08/18 15:42 Labs: Laboratory Results - last 24 hr 09/08/18 09/08/18 09/08/18 15:42 15:42 15:42 WBC 6.0 RBC 5.29 H Hgb 13.5 Hct 41.2 MCV 77.9 L MCH 25.5 L MCHC 32.8 RDW 14.6 Plt Count 262 Neut % (Auto) 37.8 L Lymph % (Auto) 42.5 H [place] % (Auto) 9.1 Eos % (Auto) 8.8 H Baso % (Auto) 1.8 Neut # (Auto) 2300 Lymph # (Auto) 2600 [place] # (Auto) 500 Eos # (Auto) 500 H Baso # (Auto) 100 PT 14.0 H INR 1.2 APTT 41 H Sodium 138 Potassium 3.9 Chloride 100 Carbon Dioxide 30 BUN 15 Creatinine 0.60 Estimated GFR > 60.0 BUN/Creatinine Ratio 25.0 H Glucose 80 Calcium 9.6 Assessment & Plan Assessment & Plan narrative: Probable CVA -MRI with MRA pending for tomorrow -echocardiogram pending for tomorrow -begin Plavix and continue aspirin -monitor on telemetry. -routine neuro checks. Left Sided Numbness/Tingling -see plan above -this has lasted for more than 24 hours, consistent with a neurological process that should be evident on MRI scanning tomorrow. Hypertension -continue low-dose losartan, with caution to allow permissive hypertension. Hypothyroidism -continue levothyroxine Hyperlipidemia -continue atorvastatin Chronic Fatigue/Insomnia -continue Remeron.
--- NOTE | 2018-09-08 17:19 | PC.NURSE ---
nurse to call back, for report.
--- NOTE | 2018-09-08 18:23 | PC.NURSE ---
attempt to call , rosenda states, she will call back,
[2018-09-08] MEDS: CLOPIDOGREL 75 MG TABLET PO (18:31)
--- NOTE | 2018-09-08 20:22 | PC.NURSE ---
184- Pt arrived to room 230 from ED via stretcher. A/O x3, Jp is with pt. Pt reports normal but weakness noted. Pt reports left lip, arm, and leg numbness. NIH score-0. BLE puffy edema, baseline. 98%RA, LS clear denies SOB. Hx CVA @ 2000, HTN and hyperdipidemia. BT+, denies nausea. Pt ambulates at home with cane, all day in house, but does not go out. 1PA FWW to BRP to void, but wears a brief for incontinence, which started a few months ago. HH diet, with lactose intolerance. CT or MRI and possible ECHO in AM. Bed alarm on for safety. Pt reports comfortable, watching TV.
[2018-09-08] MEDS: hydrOXYzine pamoate 25 MG CAPSULE PO (21:16)
[2018-09-09] VITALS (8 sets, daily range): BP systolic 137–186; BP diastolic 78–89; PULSE 75–90; RESP 15–20; TEMP 36.5–37.1; O2SAT 95–99
[2018-09-09] MEDS: SODIUM CHLORIDE 0.9% 1,000 ML 150 ML IV ×3 (00:25→12:56)
--- NOTE | 2018-09-09 01:31 | PC.NURSE ---
2300- Pt w/ hx of stroke in '00 admit for L sided numbness & tingling including arm, hand, and lip. NIH score of 0, checked 3x now. NS running into periph IV as ordered. Pt moves @ home w/ cane; using FWW in hosp. Pt states she is lactose intolerant. 0000- Tele in place, ordered for 24 hrs, reading SR w/ 1st degree AVB. Plan for MRI in AM. 0400- Neuro status reevaluated; pt stable at this time. IV fluids continue to run as ordered, no needs.
[2018-09-09] MEDS: LEVOTHYROXINE 75 MCG TABLET PO (06:32)
[2018-09-09] MEDS: LOSARTAN 25 MG TABLET PO (09:01)
[2018-09-09] MEDS: ENOXAPARIN 40 MG/0.4 ML SYRINGE SUBCUT (09:01)
[2018-09-09] MEDS: CLOPIDOGREL 75 MG TABLET PO (09:01)
[2018-09-09] MEDS: MIRTAZAPINE 15 MG TABLET PO (09:01)
[2018-09-09] MEDS: ASPIRIN 81 MG TAB PO (09:02)
[2018-09-09] MEDS: OXYBUTYNIN 5 MG ER TAB 15 MG PO (09:02)
--- NOTE | 2018-09-09 09:56 | PC.NURSE ---
Addendum entered by Kaylah Waters R.N. 09/09/18 14:46: MR/SPEECH - speech eval completed, tele removed, icu notified, ivf saline lock, hair clips out, tsf to and taken icu. Original Note: Addendum entered by Kaylah Waters R.N. 09/09/18 13:53: MS - phys and occup therapies in for eval. Original Note: Addendum entered by Kaylah Waters R.N. 09/09/18 11:05: CARDIAC - ECHO in progress. Original Note: AM NOTE - at shift change, pt sitting up dangle position, needing to void, stood x1 person w/fww, some initial wobbliness, denies dizziness and ambul to br, voided and ret bed, states continues with tingling from l toes to thigh, l fingers extending to upper arm and l side mouth, shank cutter strong, smile is equal, hr reg 78, bed alarm set.
--- NOTE | 2018-09-09 15:56 | CM.DANOTE ---
Patient is a 62 year old female who was admitted on 09/08/18 for Right side numbness and Tingling. Pt has [facility] for insurance and her PCP was Dr. Jayleen Sheth but is now Dr. Samuel Burks in [place]. EMR was reviewed. Per MD, pt to work with therapy today and to get an MRI to determine medical poc. SW met bedside with pt after she returned to her room from MRI and explained role and updated white board and pt confirmed that she lives at home in [place] with spouse and is mostly Independent with ADL's but fatigues very quickly and has for the past 10 years. Pt denies any hx of HH or SNF and is unsure of d/c needs at this time. Pt states that her works but could be available for assist if needed at d/c. Plan: SW to follow closely for MRI results and further PT/OT to determine d/c planning needs and possible HH. ANTHONY Clark Discharge Planning/Care Management Advanced directive, confirm from FAMILY Start: 09/08/18 19:32 Freq: Q24H Status: Active Protocol: Document 09/08/18 19:32 MLA (Rec: 09/08/18 19:44 MLA [id number]) Advance Directive, confirm on record Time 19:00 Person contacted Jp Copy received No CM Discharge Assessment Start: 09/09/18 15:51 Freq: Status: Active Protocol: Document 09/09/18 15:52 BF (Rec: 09/09/18 15:56 BF [id number]) Discharge Planning Assessment Assigned Model Maker Scale ANTHONY Reyes Advance Directives? No History Provided By Patient Significant Other Medical Record Has Patient been admitted in last 30 No days? Prior Living Arrangements House Household Members spouse Type of transporation used prior to Relies on Others admit Independent with ADL's Yes: mostly Is patient alert and oriented? Yes Needs Assistance With Home Chores / Shopping Caregiver for Another No Patient/Family Preference Home with Home Health Comment Waiting for further PT recommendations Barriers to Discharge No Discharge Plan Home Transportation Arrangement Spouse can likely provide transport at d/c Whiteboard Updated in Patient Room with Yes name and ext. # of Model Maker Scale Review Status In Process Please Provide Date Initial DC 09/09/18 Assessment Was Performed Next Review Type Continued Stay Review
--- NOTE | 2018-09-09 16:31 | PT.IIE ---
Medical History (Last Reviewed 09/08/18 @ 17:12 by Nisha Alexis MD) Fatigue (Acute) Hypothyroidism (acquired) (Acute) CVA (cerebral vascular accident) (Acute) Insomnia (Acute) Mixed hyperlipidemia (Acute) Physical Therapy Inpatient Evaluation/Re-Eval M1 PT/OT-IP Prior Functional Status Start: 09/09/18 15:48 Freq: NEEDED Status: Active Protocol: Document 09/09/18 13:50 HH (Rec: 09/09/18 16:31 [email or web address]) Medical Review Prior Functional Status Medical History Reviewed Yes Communication No communication deficits noted. Able to make needs known. Mobility and Gait Pt stated she is home and bed bound most of the time. Pt was an independent ambulator at home who used a SPC on R UE. She rarely go outside I just like to stay in my bed. Pt usually get OOB 10 times during the day to go to bathroom which is approx 20ft from bed. She also goes to kitchen to make food in the morning and usually have frozen at [facility] with Jp. Activities of Daily Living and IADL's Pt was indepedent for ADLs but assists for IADLS such as cooking, cleaning, chores, grocery shop, etc. Social History Household Members spouse Living Arrangements House Number of Stairs To Enter/Railing? 3-4 [place] (uses SPC on R UE to go up, and support from bed for descending Home Environment Standard Height Toilet Tub/Shower Home Equipment Hand Held Shower Employment Status Retired Additional Social History Comment Pt lives with his Jp who works timekeeping supervisor 730- 5pm. Pt currently is not working and stated Im just tired of working. Pt previously had stroke that affected her face around . Pt used SPC for home mobility and she does not go out often but bed bound 80% of the time instead. M2 PT-IP Current Condition Start: 09/09/18 15:48 Freq: NEEDED Status: Active Protocol: Document 09/09/18 13:50 HH (Rec: 09/09/18 16:31 [email or web address]) Physical Therapy Current Condition Current Condition Evaluation Date 09/09/18 Treatment Diagnosis L sided weakness, impaired gait and activity tolerance Onset Date 09/08/18 Weight Bearing Status Weight Bearing Status Weight Bear as Tolerated M3 PT-IP Subjective Start: 09/09/18 15:48 Freq: NEEDED Status: Active Protocol: Document 09/09/18 13:50 (Rec: 09/09/18 16:31 [email or web address]) Subjective Physical Therapy Visit Type Type Initial Evaluation Visit Start Time 13:50 Visit Stop Time 14:35 Total Visit Minutes 45 Notes Per RN, Pt got OOB earlier with 1PA FWW to BRP to void, but wears a brief for incontinence, which started a few months ago. Also c/o Pt reports left lip, arm, and leg numbness since admission Number of VIDEO GAME ENGINEER Visits 0 Physical Therapy Visit Comments Patient Comments I feel ok but not that strong on L side. Still have tingling and numbness on L arm and leg. Patient Goals To return home Therapy Pain Assessment Pain When Pain Assessed At Rest Pain Present Pain Present Pain Reported Location Left Shoulder Intensity 4 Scale Used Carballo-Granados (Faces) Description Aching Dull Pain Behaviors Facial Grimacing Pain Management Techniques Modification of Treatment Re-positioning Timing of Activity with Medications M4 PT-IP Mobility and Gait Start: 09/09/18 15:48 Freq: NEEDED Status: Active Protocol: Document 09/09/18 13:50 (Rec: 09/09/18 16:31 [id number]) PT-Bed Mobility Assessment Rolling Type of Rolling Roll to Left Level of Assist Standby Assistance Supine to Sit Supine to Sit Standby Assistance Head of Bed Elevated Bedrails Sit to Supine Sit to Supine Standby Assistance Head of Bed Elevated Bedrails Scooting Scooting to Edge of Bed Standby Assistance PT-Transfer Assessment Sit to and From Stand Sit to and from Stand Standby Assistance Equipment Transfer Assistive Device None Gait Belt Orthotic/Prosthetic Devices or Brace: No Transfers Transfer Destination Bed Chair Toilet Transfer Technique Stand Step Pivot Transfer Ability Level of Assist Standby Assistance Comments Mobility Comments Pt got OOB and perforemd toilet and chair transfers with 1pa SBA. Pt was able to stand unsupported for clean up in front of sink >10 minutes. She was able to crab picker object from floor as well SBA. Gait Assessment Gait Gait Assistance Required: Standby Assistance Distance (Feet) 30 Able to Maintain Weight Bearing Status Yes During Gait Assistive Devices Assistive Device Gait Belt Orthotic/Prosthetic Devices or Brace: No Gait Deviations General Gait Pattern Antalgic Decreased Stride Length Decreased Feet Clearance Flexed Trunk Factors Limiting Gait Function Factors Limiting Gait Function Decreased Activity Tolerance Decreased Strength Limited Range of Motion Poor Balance Poor Safety Awareness Comments Gait Comments Pt got up from bed and amb to bathroom, to hallway and returned to bedside chair with 1pa SBA. Pt presentes antalgic gait on L side, along with decreased foot clearance on L. Pt amb with a flexed posture and lack of reciprocal armswing. Pt stated she feels weak on her L legs and she never walked like this before. She also c/o the pressure from the ground to her L foot is different than her R foot. Stair Climbing Assessment Comments Stair Climbing Comments did not attempt due to fatigue PT-Balance Assessment Sitting Balance and Reactions Static Sitting Balance Ability Normal Dynamic Sitting Balance Ability Normal Standing Balance and Reactions Static Standing Balance Ability Normal Dynamic Standing Balance Ability Good Device Used none M5 PT-IP Objective Assessments Start: 09/09/18 15:48 Freq: NEEDED Status: Active Protocol: Document 09/09/18 13:50 HH (Rec: 09/09/18 16:31 [email or web address]) Orientation Orientation/Cognition Level of Alertness Alert Orientation Name Age Birthday Month Date Year Day of Week Place Situation Language Function Ability No Deficits Noted Safety Awareness Understands Safety Issues Memory Description No Deficits Noted Gross Range of Motion Upper Extremity ROM Assessment Left Impaired Impairments LUE flexion= 90% of R side. Lower Extremity ROM Assessment Left Impaired Impairments noticeable limited AROM of L ankle DF, EV, INV and digital flexion. Strength Upper Extremity Strength Assessment Left Impaired Lower Extremity Strength Assessment Left Impaired Comments Strength Comments noticeable L UE and L LE weakness (distal > proximal) L UE 4-/5 R UE 4+/5 L LE 3+/5 R LE 4-/5 Coordination Assessment Gross Coordination Gross Coordination Impaired Assessment Finger to Nose Test Minimal Impairment Pronation/Supination Test Minimal Impairment Coordination Comments intact for accuracy but increased time taken Sensation Assessment Sensation Gross Sensation Left UE Impaired Left LE Impaired Light Touch Impaired Proprioception (Position) Impaired Sensation Description Numbness Tingling Comments Sensation Comments Pt c/o overall decreased sensitivity to light touch ( distal > proximal) on both L UEs and LEs. Increased processing time for proprioception test but able to accurately verbalize body positioning. Muscle Tone Muscle Tone WNL Yes M6 PT-IP Treatment Start: 09/09/18 15:48 Freq: NEEDED Status: Active Protocol: Document 09/09/18 13:50 HH (Rec: 09/09/18 16:31 [email or web address]) Physical Therapy Treatment Education Education Provided Safety M7 PT-IP Assessment and Plan Start: 09/09/18 15:48 Freq: NEEDED Status: Active Protocol: Document 09/09/18 13:50 HH (Rec: 09/09/18 16:31 [email or web address]) PT Summary Assessment and Plan Potential Rehabilitation Potential Good Status of Condition at Evaluation Evolving Summary Impairments Pain ROM Strength Balance Assessment Summary Pt is a 62F non smoker with history of CVA presents with L facial weakness, numbness, and L arm / L leg numbness and tingling since yesterday morning. Upon assessment, pt presents overall decreased sensitivity to light touch and pressure (distal > proximal) on both L UEs and LEs. Increased processing time for proprioception test but able to accurately verbalize body positioning. Slight decreased muscle strength on L UE and LE (distal > proximal), but noticeable decreased L ankle ROM and strength. Pt overall needed SBA for mobility but she presents L antalgic gait with decreased L foot clearance. Educated pt to self assess of ROM/ strength every 1/2 hours for monitoring purposes. Pt is currently somewhat close to her baseline but need cont assessment for her overall functional strength and mobility. Pt is expected to d/c home with assistance once she is medically stable and reach rehab goals. Goals Bed Mobility Goal Independent Transfer Goal Independent Cane Gait Goal Independent Cane Gait Distance 200 Other Goals climb 3-4 Steps with SPC independently Days to Meet Goals 10 Frequency of Treatment Frequency Of Treatment Twice a Day Treatment Plan Physical Therapy Treatment Plan Bed Mobility Training Transfer Training Gait Training Therapeutic Exercise Balance Retraining Discharge Planning Neuromuscular Re-ed Other Recommendations and Next Treatment reassess pt's ROM and strength Focus bed mob, transfer and gait training as breann with LRAD stair climbing if possible Recommendations To Nursing Amount of Assist Needed Standby Assistance Discharge Recommendations PT Discharge Recommendations Home with Assistance Other Discharge Recommendations Pt is currently somewhat close to her baseline but need cont assessment for her overall functional strength and mobility. Pt is expected to d/ c home with assistance once she is medically stable and reach rehab goals.
--- NOTE | 2018-09-09 17:07 | P.PN_ITS ---
Subjective Date Patient Seen: 09/09/18 Interval history: Tricia Rodriguez is a 62-year-old chronically ill female with a past medical history significant for previous ischemic CVA and has been bed-bound for 15 yea rs and hyperlipidemia who presented with approximately 36 hours of left-sided numbness and tingling. The patient is resting in bed comfortably. She is quite apathetic and lethargic. She reports she has been bed-bound for close to 20 years after her stroke due to weakness. She reports she spends 80% of her time in bed reading etc. She endorses tingling in her left hand and foot which is most bothersome. She otherwise has no complaints and denies headache, lightheadedness or dizziness, shortness of breath, chest pain, abdominal pain, nausea, vomiting, fever, chills, dysuria, diarrhea or constipation. She is voiding without difficulty. She has not had a bowel movement since admission. She is up ambulating with assistance. Exam Vital Signs (past 8 hours): - 09/09/18 13:00 Temperature 98.4 F Pulse Rate 90 Respiratory Rate 16 Blood Pressure 150/78 H Pulse Oximetry 98 Oxygen Delivery Method Room Air Narrative Exam Narrative: General: Middle-aged female lying in bed and in no acute distress, appears older than stated age and chronically ill, well-developed, well-nourished, apathetic and disinterested. HEENT: Normocephalic, atraumatic. External ears without defect. Pupils equal, round, and reactive to light. Anicteric sclerae, moist conjunctivae, and no lid lag. Very subtle left facial droop. Neck: Supple with full range of motion. No lymphadenopathy or thyromegaly. Cardiovascular: Regular rate and rhythm without murmurs, rubs, or gallops appreciated. Pulmonary: Clear to auscultation bilaterally without crackles, wheezes, or rhonchi. Normal respiratory effort with no use of accessory muscles. Abdomen: Soft, bowel sounds present, nontender, nondistended. No hepatosplenomegaly or masses appreciated. Extremities: No clubbing, cyanosis, or edema. Skin: Normal temperature, turgor, and texture; no rash, ulcers, or subcutaneous nodules appreciated. Neurological: Very subtle left facial droop, left upper extremity MS +4/5 and left lower extremity +3/5. Right upper and lower extremity MS +4/5. Cerebellar function intact but delayed. No visual field deficit. Psychiatric: Severely depressed mood and flat affect. Alert and oriented to person, place, and time. Objective Labs Result Diagrams: 09/10/18 04:38 09/10/18 04:38 Assessment & Plan Assessment & Plan narrative: Tricia Rodrigeuz is a 62-year-old chronically ill female with a past medical history significant for previous ischemic CVA with residual left-sided facial numbness and tingling and predominantly in bed reportedly due to weakness and hyperlipidemia who presented with approximately 36 hours of left-sided numbness and tingling. 1. Acute CVA, present on admission. Active. -Patient presented with left-sided numbness and tingling. History of previous CVA with residual left-sided facial numbness and tingling. -Echocardiogram demonstrated normal LV and RV function with EF 65-70%, severely dilated left atrium, and mild mitral regurgitation. No intra-atrial shunt. -Continue aspirin 81 mg daily and started Plavix 75 mg daily. -Continue to monitor closely on telemetry. No ectopy today. -Continue neuro checks. -Ordered MR stroke, pending. 2. Chronic fatigue and insomnia, present on admission. Stable. -Continue Remeron 15 mg daily. -Patient is not profoundly weak, therefore, she should not be bed bound for 20 years due to previous CVA?? Considering other etiologies. 3. Hypertension -Continue losartan 25 mg daily. 4. Hypothyroidism, chronic, present on admission. Stable. -TSH low normal at 0.57. -Continue levothyroxine 75 mcg daily. 5. Hyperlipidemia, chronic, present on admission. Stable. -Ordered fasting lipid panel, pending. -Started atorvastatin 40 mg daily at bedtime. Not clear why patient has not been placed on statin. Disposition: Likely to discharge in several days depending upon stroke evaluation and treatment. Quality VTE Deep Vein Thrombosis/Pulmonary Embolism Present on Admission: No
--- NOTE | 2018-09-09 17:10 | OT.IP.EVAL ---
Past Medical History (Last Reviewed 09/08/18 @ 17:12 by Nisha Alexis MD) Fatigue (Acute) Hypothyroidism (acquired) (Acute) CVA (cerebral vascular accident) (Acute) Insomnia (Acute) Mixed hyperlipidemia (Acute) Occupational Therapy Inpatient Evaluation/Re-Eval M1 PT/OT-IP Prior Functional Status Start: 09/09/18 16:51 Freq: NEEDED Status: Active Protocol: Document 09/09/18 16:51 [facility] (Rec: 09/09/18 17:10 [facility] [id number]) Medical Review Prior Functional Status Medical History Reviewed Yes Diet/Fluid Consistency Regular Thin Liquids Communication No communication deficits noted. Able to make needs known. Mobility and Gait Pt stated she is home and bed bound most of the time. Pt was an independent ambulator at home who used a SPC on R UE. She rarely go outside I just like to stay in my bed. Pt usually get OOB 10 times during the day to go to bathroom which is approx 20ft from bed. She also goes to kitchen to make food in the morning and usually have frozen meal at night with Jp. Pt states does not eat lunch. Activities of Daily Living and IADL's Pt was independent for ADLs but assists for IADLS such as cooking, cleaning, chores, grocery shop, etc. Social History Household Members spouse Living Arrangements House Number of Floors (Floors) One Floor Number of Stairs To Enter/Railing? 3-4 [place] (uses SPC on R UE to go up, and support from board as needed for descending for left arm and SPC for right side. Home Environment Standard Height Toilet Tub/Shower Home Equipment Hand Held Shower Employment Status Retired Additional Social History Comment Pt lives with his Jp who works seo consultant 730- 5pm. Pt currently is not working and stated Im just tired of working. Pt previously had stroke that affected her face around 1999. . Pt used SPC for outside mobility and she does not go out often but bed bound 80% of the time instead. M2 OT-IP Current Condition Start: 09/09/18 16:51 Freq: Status: Active Protocol: Document 09/09/18 16:51 [facility] (Rec: 09/09/18 17:10 [facility] [id number]) Occupational Therapy Current Condition Current Condition Evaluation Date 09/09/18 Treatment Diagnosis Left sided weakness and numbness. M3 OT- IP Subjective and Pain Start: 09/09/18 16:51 Freq: Status: Active Protocol: Document 09/09/18 16:51 [facility] (Rec: 09/09/18 17:10 [facility] [id number]) OT- Subjective Occupational Therapy Visit Type Type Initial Evaluation Visit Start Time 13:45 Visit Stop Time 14:35 Total Visit Minutes 50 Occupational Therapy Visit Comments Patient Comments Pt agreeable to get up and wanting to use the bathroom. PT/OT present for evals. Patient/Caregiver Goals Pt wanting to go home. OT Pain Assessment Pain When Pain Assessed During Mobility Pain Present Pain Present Pain Reported Location Left Shoulder Intensity 5 M4 OT- IP ADL's Start: 09/09/18 16:51 Freq: Status: Active Protocol: Document 09/09/18 16:51 [facility] (Rec: 09/09/18 17:10 [facility] [id number]) OT ADL-Grooming General Evaluation Grooming Ability Standby Assistance Comments OT Grooming Comments Pt able to wash her face and hands at the sink with SBA. OT ADL-Oral Care General Eval Oral Care Ability Independent OT ADL-Dressing General Eval Lower Body Dressing Ability Standby Assistance Comments OT Dressing Comments Pt able to elizabeth/doff socks while sitting on the recliner. OT ADL-Toileting General Evaluation Toileting Ability Standby Assistance Comments OT Toileting Comments SBA and pt able to do all hygiene needs on her own with good safety. Pt does have to use grab bar for safety. OT ADL-Bathing Comments OT Bathing Comments NOt at this time. M5 OT- IP IADL's Start: 09/09/18 16:51 Freq: Status: Active Protocol: Document 09/09/18 16:51 [facility] (Rec: 09/09/18 17:10 [facility] [email or web address]) OT-Instrumental Activities of Daily Living Meal Preparation Meal Preparation Comments Pt states assists. Space Officer Space Officer Caregiver Provides Assist Driving Driving Caregiver Provides Assist M6 OT- IP Functional Cognition Start: 09/09/18 16:51 Freq: Status: Active Protocol: Document 09/09/18 16:51 [facility] (Rec: 09/09/18 17:10 [facility] [email or web address]) Cognitive Factors Limiting Selfcare Function Cognitive Ability Level of Alertness Alert Patient Orientation Name Month Year Day of Week Place Situation Attention Span Ability Capable of Focused Attention Capable of Sustained Attention Ability to Follow Commands Able to Follow Multi-Step Commands Cognitive Comments Cognitive Assessment Comments Pt able to follow multiple commands for ADl needs. To further assess cognition tomorrow for higher level needs. OT- Vision and Hearing OT- Hearing Assessment OT- Hearing Assessment WFL OT- Vision Assessment Visual Acuity WFL M7 OT- IP Mobility and Balance Start: 09/09/18 16:51 Freq: Status: Active Protocol: Document 09/09/18 16:51 [facility] (Rec: 09/09/18 17:10 [facility] [email or web address]) OT- Bed Mobility Assessment Rolling Type of Rolling Roll to Left Supine to Sit Supine to Sit Assist Independent Sit to Supine Sit to Supine Assist Independent OT-Transfer Assessment Sit to and From Stand Sit to and from Stand Standby Assistance 1 Person Assistance Transfers Transfer Ability Standby Assistance Technique Transfer Destination Bed Chair Toilet Devices Transfer Assistive Devices None Gait Belt Comments Mobility Comments Pt tends to have flexed posture when upright and flexed at trunk and neck. Pt states does not stand up straight as she is tired. To consider trying device is helpful for her posture and endurance. OT- Gait Assessment Comments Gait Ability Comments Pt able to walk into and out of the bathroom with SBA. Pt tends to shuffle her feet and has flexed posture. OT- Balance Assessment Sitting Balance and Reactions Static Sitting Balance Ability Normal Dynamic Sitting Balance Ability Good Standing Balance and Reactions Static Standing Balance Ability Good M8 OT- IP Objective Assessments Start: 09/09/18 16:51 Freq: Status: Active Protocol: Document 09/09/18 16:51 [facility] (Rec: 09/09/18 17:10 [facility] [email or web address]) OT Gross Range of Motion Upper Extremity Range of Motion Assessment Left Impaired ROM Impairments AROM shoulder flexion 90% of RUE. OT Strength Comments Strength Comments RUE 4+/5, LUe4-/5 OT- Coordination Assessment Upper Extremity Finger to Nose Test Within Functional Limits Finger Tapping Test Within Functional Limits OT Sensation Assessment Comments Summary Comments Intact for light touch, however states feeling is off, numb in fingertips of right hand. Edema Edema Present Edema Comments Min swelling in left hand. M9 OT- IP Assessment and Plan Start: 09/09/18 16:51 Freq: Status: Active Protocol: Document 09/09/18 16:51 [facility] (Rec: 09/09/18 17:10 [facility] [email or web address]) OT Summary Assessment and Plan Potential Rehabilitation Potential Good Analytic Complexity at Evaluation Low Summary OT Impairments Range of Motion Strength Sensation Functional Mobility Bathing Progress Towards Goals Progressing Toward Goals Assessment Summary Pt low complexity and main barrier is steps, activity tolerance, and endurance. Pt needing mainly SBA at this time for bed mobility and ADl needs. To try shower with pt tomorrow. Pt may need extra assist from especially for showering and IADl needs. Pt to go home when medically stable. Pt may benefit form home health to work on increasing overall strength, activity tolerance, and endurance needs. Goals Grooming Goal Independent Dressing Goal Independent Toileting Goal Independent Bathing Goal Standby Assistance Toilet Transfer Goal Independent Shower Transfer Goal Standby Assistance Patient/Caregiver Education Goal Caregiver Independent Assisting Patient Days to Meet Goals 3 Frequency of Treatment Frequency Of Treatment Once a Day Treatment Plan OT Treatment Plan ADL Training Functional Mobility Patient/Family Education Discharge Planning Other Treatment Recommendations and Next Shower, further cognitive Treatment Focus assessment Discharge Recommendations OT Discharge Recommendations Home with Assistance Home Health Home Equipment Needs [facility]
--- NOTE | 2018-09-09 18:08 | ST.IPCSEOM ---
Care Team Visit Care Team Role Provider Type Jayleen Sheth DO Primary Care Provider Physician Specialty: Family Practice Address: [address] [place] [address], [id number] Email: [email or web address] Cotton DO Emergency Provider Physician Specialty: Emergency Medicine Address: [address] [place] [address], [id number] Email: [email or web address] Alexis MD Admit Provider Physician Attending Provider Specialty: Medical Address: [address] [place] [address], [id number] Email: Past Medical History (Last Reviewed 09/08/18 @ 17:12 by Nisha Alexis MD) Fatigue (Acute Medical) Hypothyroidism (acquired) (Acute Medical) CVA (cerebral vascular accident) (Acute Medical) Insomnia (Acute Medical) Mixed hyperlipidemia (Acute Medical) Speech-Language Pathology 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 She has been ? bed ridden,? for 15 years according to her . Pt reported that she was feeling tingling and numbness on the entirety of her left arm and left leg along with a small area on the left lower lip. She has a prior history of stroke that she says caused facial drooping, she can't remember which side and reported this was in approximately 1999. Subjective Observations Pt was alert and cooperative. She was found sitting upright in her chair by the bed. She was agreeable to a swallow evaluation. Evaluation Liquids Trialed Thin Solids Trialed Regular Administration Type Straw Self-Feeding Oral Impairment WNL Oral Strategies Upright at 90 degrees Lingual Sweep Oral Phase Comments Pt reported that the numbness on the left side of her lips was still persistent at the beginning of the evaluation, but noted that she did not feel it was impeding her ability to eat. Results of the OME indicate pt's oral structures and within normal limits and are adequate for articulation and mastication of a bolus. Pt showed adequate lip seal, lingual movement, mandible strength, and dentition. Trials observed were sips of thin liquid via straw and regular food texture. Pt had adequate mastication time for the bolus and clinician observed no reside after completion of mastication and swallow of the bolus. Pharyngeal Impairment WNL Pharyngeal Strategies Sitting Upright (90 deg) Small Bites and Sips Pharyngeal Phase Comments During palpation of the larynx , it was noted that the pt demonstrated adequate hyolyarngeal movement during a dry swallow test and while eating and drinking. During all trials, the pt did not cough or have a wet voice. Pt had no reports of problems such as the bolus feeling stuck and not going the right way during the evaluation. Findings Dysphagia Type No dysphagia indicated at this time Diet Recommendations Liquids Order Thin Diet Order Regular Medication Recommendations As Tolerated Aspiration Precautions Recommended Precautions Upright at 90 Degrees Alternate Liquids/Solids Small Bites/Sips Lingual Sweep Treatment Plan Appropriate for Therapy No: Swallow WFL
[2018-09-09] MEDS: hydrOXYzine pamoate 25 MG CAPSULE PO (21:41)
[2018-09-09] MEDS: ATORVASTATIN 20 MG TABLET 40 MG PO (21:41)
[2018-09-10] VITALS (8 sets, daily range): BP systolic 151–172; BP diastolic 79–102; PULSE 74–88; RESP 14–18; TEMP 36.3–37; O2SAT 95–100
[2018-09-10] MEDS: SODIUM CHLORIDE 0.9% 1,000 ML 75 ML IV (00:47)
--- NOTE | 2018-09-10 00:51 | PC.NURSE ---
2300- Pt continues to have some L sided weakness & tingling; she states it feels better than yesterday. NS running as ordered into patent IV; moving 1PA w/ FWW to bathroom. MRI resulted, see reports for details. Pt aware of results. Tele in place as prev RN said nothing about d/c. Will pass onto next shift & MD in AM. Bilat leg puffiness, no pitting. Pt has no difficulty swallowing at this time. 0200- Pt's neuro status intact, resting in bed. Moving to the bathroom 1PA w/ FWW.
[2018-09-10 05:36] LABS: Add Manual Diff / Slide Review NO; Basophils Absolute Auto 100 /uL (0-100); Basophils Percent Auto 1.2 % (0-2); Eosinophils Absolute Auto 600 /uL (0-450); Eosinophils Percent Auto 10.6 % (2-4); Hematocrit 35.4 % (36-46); Hemoglobin 12.3 g/dL (12.0-16.0); Lymphocytes Absolute Auto 2600 /uL (1100-4500); Lymphocytes Percent Auto 44.4 % (25-40); Mean Corpuscular HGB Conc 34.7 % (30-36); Mean Corpuscular Hemoglobin 26.7 PG (26-34); Mean Corpuscular Volume 76.9 fL (80-100); Monocytes Absolute Auto 500 /uL (0-900); Monocytes Percent Auto 8.9 % (3-14); Neutrophils Absolute Auto 2000 /uL (1500-7000); Neutrophils Percent Auto 34.9 % (50-75); Platelet Count 249 X10^3/uL (150-400); Red Cell Distribution Width 14.5 % (11.6-14.8); White Blood Cell Count 5.8 X10^3/uL (4.5-11.0)
[2018-09-10] MEDS: LEVOTHYROXINE 75 MCG TABLET PO (06:13)
[2018-09-10] MEDS: PANTOPRAZOLE 20 MG TABLET PO (06:13)
[2018-09-10 06:17] LABS: Thyroid Stimulating Hormone 0.57 uIU/mL (0.47-4.68)
[2018-09-10 06:48] LABS: Blood Urea Nitrogen 10 mg/dL (7-17); Calcium 8.7 mg/dL (8.4-10.2); Carbon Dioxide 24 mmol/L (22-32); Chloride 105 mmol/L (98-107); Cholesterol 103 mg/dL (140-199); Estimated Glomerular Filt Rate > 60.0 mL/min (>60); Glucose 113 mg/dL (80-110); HDL Cholesterol 16 mg/dL (40-60); HEMOLYSIS 31 (0-50); Potassium 3.5 mmol/L (3.4-5.1); Sodium 138 mmol/L (137-145)
[2018-09-10 07:06] LABS: Triglycerides 594 mg/dL (35-150)
[2018-09-10] MEDS: ENOXAPARIN 40 MG/0.4 ML SYRINGE SUBCUT (09:01)
[2018-09-10] MEDS: CLOPIDOGREL 75 MG TABLET PO (09:01)
[2018-09-10] MEDS: OXYBUTYNIN 5 MG ER TAB 15 MG PO (09:01)
[2018-09-10] MEDS: MIRTAZAPINE 15 MG TABLET PO (09:01)
[2018-09-10] MEDS: LOSARTAN 25 MG TABLET PO ×2 (09:02→19:16)
[2018-09-10] MEDS: ASPIRIN 81 MG TAB PO (09:02)
--- NOTE | 2018-09-10 11:04 | PC.NURSE ---
Addendum entered by Kaylah Waters R.N. 09/10/18 12:12: MS - phys therapy in and mobilized, up to chair for lunch. Original Note: AM NOTE - using call light, up dangle position, states her tingling feels same , standby assist up to br, gait is uneven as she states the tingling l foot affects her wt bearing, ret to bed w/alarm set.
--- NOTE | 2018-09-10 12:27 | PT.IPTN ---
Current Diagnoses Cerebral infarction, unspecified (09/08/18) Physical Therapy Treatment Note M2 PT-IP Current Condition Start: 09/09/18 15:48 Freq: NEEDED Status: Active Protocol: Document 09/09/18 13:50 HH (Rec: 09/09/18 16:31 HH [id number]) Physical Therapy Current Condition Current Condition Evaluation Date 09/09/18 Treatment Diagnosis L sided weakness, impaired gait and activity tolerance Onset Date 09/08/18 Weight Bearing Status Weight Bearing Status Weight Bear as Tolerated M3 PT-IP Subjective Start: 09/09/18 15:48 Freq: NEEDED Status: Active Protocol: Document 09/10/18 11:25 CLB (Rec: 09/10/18 12:27 CLB [id number]) Subjective Physical Therapy Visit Type Type Treatment Note Visit Start Time 11:25 Visit Stop Time 11:48 Total Visit Minutes 23 Number of TECHNICAL SERVICE ENGINEER Visits 1 Physical Therapy Visit Comments Patient Comments Pt willing to ambulate and sit in chair for lunch. Therapy Pain Assessment Pain When Pain Assessed During Mobility Pain Present Pain Present Pain Reported Location Left knee Pain Behaviors Holding Area M4 PT-IP Mobility and Gait Start: 09/09/18 15:48 Freq: NEEDED Status: Active Protocol: Document 09/10/18 11:25 CLB (Rec: 09/10/18 12:27 CLB [id number]) PT-Bed Mobility Assessment Supine to Sit Supine to Sit Contact Guard Assistance Head of Bed Elevated Bedrails Scooting Scooting to Edge of Bed Standby Assistance PT-Transfer Assessment Sit to and From Stand Sit to and from Stand Standby Assistance Equipment Transfer Assistive Device None Gait Belt Straight Cane Transfers Transfer Destination Bed Chair Toilet Transfer Technique Stand Step Pivot Transfer Ability Level of Assist Standby Assistance Comments Mobility Comments Pt needing cues for bed mobility. Gait Assessment Gait Gait Assistance Required: Standby Assistance Distance (Feet) 50 Assistive Devices Assistive Device Gait Belt Straight Cane Orthotic/Prosthetic Devices or Brace: No Gait Deviations General Gait Pattern Antalgic Decreased Stride Length Decreased Feet Clearance Flexed Trunk Factors Limiting Gait Function Factors Limiting Gait Function Decreased Activity Tolerance Decreased Strength Limited Range of Motion Poor Balance Poor Safety Awareness Comments Gait Comments Pt ambulated in patel with SPC/ SBA. Pt ambulates slowly with decreased foot clearance on LLE and flexed posture. M5 PT-IP Objective Assessments Start: 09/09/18 15:48 Freq: NEEDED Status: Active Protocol: Document 09/09/18 13:50 HH (Rec: 09/09/18 16:31 HH [id number]) Orientation Orientation/Cognition Level of Alertness Alert Orientation Name Age Birthday Month Date Year Day of Week Place Situation Language Function Ability No Deficits Noted Safety Awareness Understands Safety Issues Memory Description No Deficits Noted Gross Range of Motion Upper Extremity ROM Assessment Left Impaired Impairments LUE flexion= 90% of R side. Lower Extremity ROM Assessment Left Impaired Impairments noticeable limited AROM of L ankle DF, EV, INV and digital flexion. Strength Upper Extremity Strength Assessment Left Impaired Lower Extremity Strength Assessment Left Impaired Comments Strength Comments noticeable L UE and L LE weakness (distal > proximal) L UE 4-/5 R UE 4+/5 L LE 3+/5 R LE 4-/5 Coordination Assessment Gross Coordination Gross Coordination Impaired Assessment Finger to Nose Test Minimal Impairment Pronation/Supination Test Minimal Impairment Coordination Comments intact for accuracy but increased time taken Sensation Assessment Sensation Gross Sensation Left UE Impaired Left LE Impaired Light Touch Impaired Proprioception (Position) Impaired Sensation Description Numbness Tingling Comments Sensation Comments Pt c/o overall decreased sensitivity to light touch ( distal > proximal) on both L UEs and LEs. Increased processing time for proprioception test but able to accurately verbalize body positioning. Muscle Tone Muscle Tone WNL Yes M6 PT-IP Treatment Start: 09/09/18 15:48 Freq: NEEDED Status: Active Protocol: Document 09/10/18 11:25 CLB (Rec: 09/10/18 12:27 CLB [id number]) Physical Therapy Treatment Exercises Exercises Gluteal Sets Quad Sets Other Treatments Other Treatment Performed DF/PF w/resistance M7 PT-IP Assessment and Plan Start: 09/09/18 15:48 Freq: NEEDED Status: Active Protocol: Document 09/10/18 11:25 CLB (Rec: 09/10/18 12:27 CLB [id number]) PT Summary Assessment and Plan Potential Rehabilitation Potential Good Status of Condition at Evaluation Evolving Summary Impairments Pain ROM Strength Balance Assessment Summary Pt able to increase gait distance to ~50ft w/SPC/SBA. Pt required cues for sequencing for proper bed mobility. Pt able to perform therapeutic exercises without decrease in strength from first to last repetitions. Pt will require assist at home upon d/c and would benefit from OP PT to increase strength and endurance. Goals Bed Mobility Goal Independent Transfer Goal Independent Cane Gait Goal Independent Cane Gait Distance 200 Other Goals climb 3-4 Steps with SPC independently Days to Meet Goals 10 Frequency of Treatment Frequency Of Treatment Twice a Day Treatment Plan Physical Therapy Treatment Plan Bed Mobility Training Transfer Training Gait Training Therapeutic Exercise Balance Retraining Discharge Planning Neuromuscular Re-ed Other Recommendations and Next Treatment reassess pt's ROM and strength Focus bed mob, transfer and gait training as breann with LRAD stair climbing if possible Recommendations To Nursing Amount of Assist Needed Standby Assistance Discharge Recommendations PT Discharge Recommendations Home with Assistance Other Discharge Recommendations OP PT
--- NOTE | 2018-09-10 13:16 | OT.IP.TRT ---
Current Diagnoses Cerebral infarction, unspecified (09/08/18) Occupational Therapy Treatment Note M2 OT-IP Current Condition Start: 09/09/18 16:51 Freq: Status: Active Protocol: Document 09/09/18 16:51 [facility] (Rec: 09/09/18 17:10 [facility] [id number]) Occupational Therapy Current Condition Current Condition Evaluation Date 09/09/18 Treatment Diagnosis Left sided weakness and numbness. M3 OT- IP Subjective and Pain Start: 09/09/18 16:51 Freq: Status: Active Protocol: Document 09/10/18 13:03 [facility] (Rec: 09/10/18 13:16 [facility] [id number]) OT- Subjective Occupational Therapy Visit Type Type Treatment Note Visit Start Time 11:35 Visit Stop Time 12:05 Total Visit Minutes 30 Occupational Therapy Visit Comments Patient Comments Pt agreeable to get up and try use of 4WW. OT Pain Assessment Pain When Pain Assessed At Rest Pain Present Pain Present Denied Pain M4 OT- IP ADL's Start: 09/09/18 16:51 Freq: Status: Active Protocol: Document 09/10/18 13:03 [facility] (Rec: 09/10/18 13:16 [facility] [id number]) OT [id number] General Evaluation Self-Feeding Ability Independent OT ADL-Bathing Comments OT Bathing Comments Scheduled with pt and 9AM tomorrow. Pt currently uses tub/shower but has not showered in awhile and states too afraid to use his walk in shower. When asking pt why, she states just gets too tired. M5 OT- IP IADL's Start: 09/09/18 16:51 Freq: Status: Active Protocol: Document 09/09/18 16:51 [facility] (Rec: 09/09/18 17:10 [facility] [id number]) OT-Instrumental Activities of Daily Living Meal Preparation Meal Preparation Comments Pt states assists. Acetylene Cylinder Packing Mixer Acetylene Cylinder Packing Mixer Caregiver Provides Assist Driving Driving Caregiver Provides Assist M6 OT- IP Functional Cognition Start: 09/09/18 16:51 Freq: Status: Active Protocol: Document 09/10/18 13:03 [facility] (Rec: 09/10/18 13:16 [facility] [id number]) Cognitive Factors Limiting Selfcare Function Cognitive Ability Level of Alertness Alert Patient Orientation Name Month Year Day of Week Place Situation Attention Span Ability Capable of Focused Attention Capable of Sustained Attention Ability to Follow Commands Able to Follow Multi-Step Commands Memory Description Short Term Impaired Safety Awareness Underestimates Need for Assistance Problem Solving Ability Needs Assist to Identify Solutions Executive Function Ability Unable to Make Plans Unable to Organize Plans Unable to Remember Details Cognitive Tests SLUMS Pt scored 20/30 normal is 27/ 30 for pt's education. Score implies cognitive deficits. Pt having most trouble with memory items, math calculations. Cognitive Comments Cognitive Assessment Comments Pt feels that having more trouble with her memory now versus prior to CVA this time. Suggested for to assist and supervison for bill paying and medications. M7 OT- IP Mobility and Balance Start: 09/09/18 16:51 Freq: Status: Active Protocol: Document 09/10/18 13:03 [facility] (Rec: 09/10/18 13:16 [facility] [id number]) OT-Transfer Assessment Sit to and From Stand Sit to and from Stand Standby Assistance Transfers Transfer Ability Standby Assistance Technique Transfer Destination Chair Devices Transfer Assistive Devices None Gait Belt Front Wheeled Walker Comments Mobility Comments Pt MOD I with 4Ww, just needing occasional vc to lock the brakes. Suggested able to get 4WW at [employer] and use especially for outside and use to carry items. Currently pt states uses transport chair to push items around if needed. M8 OT- IP Objective Assessments Start: 09/09/18 16:51 Freq: Status: Active Protocol: Document 09/10/18 13:03 [facility] (Rec: 09/10/18 13:16 [facility] [id number]) OT Gross Range of Motion Upper Extremity Range of Motion Assessment Left Impaired ROM Impairments AROM shoulder flexion 95% of RUE. M9 OT- IP Assessment and Plan Start: 09/09/18 16:51 Freq: Status: Active Protocol: Document 09/10/18 13:03 [facility] (Rec: 09/10/18 13:16 [facility] [id number]) OT Summary Assessment and Plan Potential Rehabilitation Potential Good Analytic Complexity at Evaluation Low Summary OT Impairments Range of Motion Strength Sensation Functional Mobility Bathing Progress Towards Goals Progressing Toward Goals Assessment Summary Noted slight improvement with AROm for LUE however no change with tingling for sensation for pt' LUE. Pt looking to go home when stable and recommend outpt PT for mobility needs. Goals Grooming Goal Independent Dressing Goal Independent Toileting Goal Independent Bathing Goal Standby Assistance Toilet Transfer Goal Independent Shower Transfer Goal Standby Assistance Patient/Caregiver Education Goal Caregiver Independent Assisting Patient Days to Meet Goals 2 Frequency of Treatment Frequency Of Treatment Once a Day Treatment Plan OT Treatment Plan ADL Training Functional Mobility Patient/Family Education Discharge Planning Other Treatment Recommendations and Next Shower, further cognitive Treatment Focus assessment Discharge Recommendations OT Discharge Recommendations Home with Assistance Outpatient PT Home Equipment Needs 4WW
--- NOTE | 2018-09-10 16:02 | PT.IPTN ---
Current Diagnoses Cerebral infarction, unspecified (09/08/18) Physical Therapy Treatment Note M2 PT-IP Current Condition Start: 09/09/18 15:48 Freq: NEEDED Status: Active Protocol: Document 09/09/18 13:50 HH (Rec: 09/09/18 16:31 HH [email or web address]) Physical Therapy Current Condition Current Condition Evaluation Date 09/09/18 Treatment Diagnosis L sided weakness, impaired gait and activity tolerance Onset Date 09/08/18 Weight Bearing Status Weight Bearing Status Weight Bear as Tolerated M3 PT-IP Subjective Start: 09/09/18 15:48 Freq: NEEDED Status: Active Protocol: Document 09/10/18 15:17 CLB (Rec: 09/10/18 16:02 CLB [email or web address]) Subjective Physical Therapy Visit Type Type Treatment Note Visit Start Time 15:15 Visit Stop Time 15:30 Total Visit Minutes 15 Number of TUBE SIZER OPERATOR Visits 2 Physical Therapy Visit Comments Patient Comments Pt agreeable to do therapy Therapy Pain Assessment Pain When Pain Assessed During Mobility Pain Present Pain Present Pain Reported M4 PT-IP Mobility and Gait Start: 09/09/18 15:48 Freq: NEEDED Status: Active Protocol: Document 09/10/18 15:17 CLB (Rec: 09/10/18 16:02 CLB [id number]) PT-Bed Mobility Assessment Supine to Sit Supine to Sit Standby Assistance Head of Bed Elevated Sit to Supine Sit to Supine Standby Assistance Head of Bed Elevated Scooting Scooting to Edge of Bed Standby Assistance PT-Transfer Assessment Sit to and From Stand Sit to and from Stand Standby Assistance Equipment Transfer Assistive Device None Gait Belt Straight Cane Transfers Transfer Destination Bed Transfer Technique Stand Step Pivot Transfer Ability Level of Assist Standby Assistance Gait Assessment Gait Gait Assistance Required: Standby Assistance Distance (Feet) 50 Assistive Devices Assistive Device Gait Belt Straight Cane Orthotic/Prosthetic Devices or Brace: No Gait Deviations General Gait Pattern Antalgic Decreased Stride Length Decreased Feet Clearance Flexed Trunk Factors Limiting Gait Function Factors Limiting Gait Function Decreased Activity Tolerance Decreased Strength Limited Range of Motion Poor Balance Poor Safety Awareness Comments Gait Comments Pt required cues for posture. Pt unwilling to ambulate further in patel. M5 PT-IP Objective Assessments Start: 09/09/18 15:48 Freq: NEEDED Status: Active Protocol: Document 09/09/18 13:50 HH (Rec: 09/09/18 16:31 HH [id number]) Orientation Orientation/Cognition Level of Alertness Alert Orientation Name Age Birthday Month Date Year Day of Week Place Situation Language Function Ability No Deficits Noted Safety Awareness Understands Safety Issues Memory Description No Deficits Noted Gross Range of Motion Upper Extremity ROM Assessment Left Impaired Impairments LUE flexion= 90% of R side. Lower Extremity ROM Assessment Left Impaired Impairments noticeable limited AROM of L ankle DF, EV, INV and digital flexion. Strength Upper Extremity Strength Assessment Left Impaired Lower Extremity Strength Assessment Left Impaired Comments Strength Comments noticeable L UE and L LE weakness (distal > proximal) L UE 4-/5 R UE 4+/5 L LE 3+/5 R LE 4-/5 Coordination Assessment Gross Coordination Gross Coordination Impaired Assessment Finger to Nose Test Minimal Impairment Pronation/Supination Test Minimal Impairment Coordination Comments intact for accuracy but increased time taken Sensation Assessment Sensation Gross Sensation Left UE Impaired Left LE Impaired Light Touch Impaired Proprioception (Position) Impaired Sensation Description Numbness Tingling Comments Sensation Comments Pt c/o overall decreased sensitivity to light touch ( distal > proximal) on both L UEs and LEs. Increased processing time for proprioception test but able to accurately verbalize body positioning. Muscle Tone Muscle Tone WNL Yes M6 PT-IP Treatment Start: 09/09/18 15:48 Freq: NEEDED Status: Active Protocol: Document 09/10/18 15:17 CLB (Rec: 09/10/18 16:02 B [id number]) Physical Therapy Treatment Exercises Exercises Gluteal Sets Quad Sets Seated Knee Flexion/Extension Other Treatments Other Treatment Performed DF/PF w/resistance M7 PT-IP Assessment and Plan Start: 09/09/18 15:48 Freq: NEEDED Status: Active Protocol: Document 09/10/18 15:17 CLB (Rec: 09/10/18 16:02 CLB [id number]) PT Summary Assessment and Plan Potential Status of Condition at Evaluation Evolving Summary Impairments Pain ROM Strength Balance Assessment Summary Pt ambulated ~50ft and was unwilling to ambulate further. Pt required cues for core activation while seated on EOB during seated knee flx/ext. Pt lacks motivation and needs encouragement to participate with therapy. Goals Bed Mobility Goal Independent Transfer Goal Independent Cane Gait Goal Independent Cane Gait Distance 200 Other Goals climb 3-4 Steps with SPC independently Days to Meet Goals 10 Frequency of Treatment Frequency Of Treatment Twice a Day Treatment Plan Physical Therapy Treatment Plan Bed Mobility Training Transfer Training Gait Training Therapeutic Exercise Balance Retraining Discharge Planning Neuromuscular Re-ed Recommendations To Nursing Amount of Assist Needed Standby Assistance Discharge Recommendations PT Discharge Recommendations Home with Assistance Other Discharge Recommendations OP PT
--- NOTE | 2018-09-10 16:55 | PM.PN.1 ---
Subjective Date Patient Seen: 09/10/18 Interval history: Tricia Rodriguez is a 62-year-old chronically ill female with a past medical history significant for previous ischemic CVA and has been bed-bound for 15-20 years and hyperlipidemia who presented with approximately 36 hours of left-sided numbness and tingling. The patient is resting in bed comfortably. She continues to be quite apathetic and lethargic. Discussed her MRI results which demonstrated a right lentiform nucleus CVA. She continues to have left-sided numbness and tingling especially in her left hand and foot which is most bothersome. Her is present and we had a thorough discussion regarding her being predominately in bed for the last 15-20 years due to fatigue and weakness. Informed her that this is predominantly related to depression or some other etiology rather than her previous stroke. Patient has been a value waited by Psychiatry on several occasions and had counseling for which she gave up on. She has never been on fluoxetine that they can recall. She reports she fatigues very quickly after she is up doing anything. She otherwise has no complaints and denies headache, lightheadedness or dizziness, shortness of breath, chest pain, abdominal pain, nausea, vomiting, fever, chills, dysuria, diarrhea or constipation. She is voiding and eliminating without difficulty. She is up ambulating with assistance and PT. Exam Vital Signs (past 8 hours): - 09/10/18 11:12 09/10/18 15:43 Temperature 98.3 F 98.0 F Pulse Rate 88 82 Respiratory Rate 14 16 Blood Pressure 160/79 H 155/79 H Pulse Oximetry 96 95 Oxygen Delivery Method Room Air Oxygen Flow Rate 0 Narrative Exam Narrative: General: Middle-aged female lying in bed and in no acute distress, appears older than stated age and chronically ill, well-developed, well-nourished, apathetic and disinterested. HEENT: Normocephalic, atraumatic. External ears without defect. Pupils equal, round, and reactive to light. Anicteric sclerae, moist conjunctivae, and no lid lag. Very subtle left facial droop. Neck: Supple with full range of motion. No lymphadenopathy or thyromegaly. Cardiovascular: Regular rate and rhythm without murmurs, rubs, or gallops appreciated. Pulmonary: Clear to auscultation bilaterally without crackles, wheezes, or rhonchi. Normal respiratory effort with no use of accessory muscles. Abdomen: Soft, bowel sounds present, nontender, nondistended. No hepatosplenomegaly or masses appreciated. Extremities: No clubbing, cyanosis, or edema. Skin: Normal temperature, turgor, and texture; no rash, ulcers, or subcutaneous nodules appreciated. Neurological: Very subtle left facial droop, left upper extremity MS +4/5 and left lower extremity +3/5. Right upper and lower extremity MS +4/5. Cerebellar function intact but delayed. No visual field deficit. Psychiatric: Severely depressed mood and flat affect. Alert and oriented to person, place, and time. Objective Labs Result Diagrams: 09/10/18 04:38 09/10/18 04:38 Labs: Laboratory Results - last 24 hr 09/10/18 09/10/18 09/10/18 04:38 04:38 04:38 WBC 5.8 RBC 4.60 Hgb 12.3 Hct 35.4 L MCV 76.9 L MCH 26.7 MCHC 34.7 RDW 14.5 Plt Count 249 Neut % (Auto) 34.9 L Lymph % (Auto) 44.4 H [place] % (Auto) 8.9 Eos % (Auto) 10.6 H Baso % (Auto) 1.2 Neut # (Auto) 2000 Lymph # (Auto) 2600 [place] # (Auto) 500 Eos # (Auto) 600 H Baso # (Auto) 100 Sodium 138 Potassium 3.5 Chloride 105 Carbon Dioxide 24 BUN 10 Creatinine 0.50 L Estimated GFR > 60.0 BUN/Creatinine Ratio 20.0 Glucose 113 H Calcium 8.7 Magnesium 2.0 Triglycerides 594 H Cholesterol 103 L LDL Cholesterol, Calc TNP HDL Cholesterol 16 L TSH 0.57 Assessment & Plan Assessment & Plan narrative: Tricia Rodriguez is a 62-year-old chronically ill female with a past medical history significant for previous ischemic CVA with residual left-sided facial numbness and tingling and predominantly in bed reportedly due to weakness and hyperlipidemia who presented with approximately 36 hours of left-sided numbness and tingling. 1. Acute right lentiform nucleus ischemic CVA, present on admission. Active. -Patient presented with left upper and lower extremity numbness and tingling. History of previous CVA with residual left-sided facial numbness and tingling. -Echocardiogram demonstrated normal LV and RV function with EF 65-70%, severely dilated left atrium, and mild mitral regurgitation. No intra-atrial shunt. -MR stroke demonstrated mild to moderate microvascular atherosclerotic change noted within the deep white matter of the right hemisphere, lentiform nuclei region, where a 4 x 6 mm focus of acute or subacute ischemic injury is present as discussed above. A chronic small additional lacunar infarction on the right is noted more anteriorly, and the appearance is most consistent with primary microvascular atherosclerotic change rather than embolic disease. No mass effect or hemorrhage associated. -Continue to monitor closely on telemetry. No ectopy. -Continue neuro checks. -Continue PT and OT evaluation and treatment. Patient will potentially have difficulty with regulation of voluntary movement. -Continue aspirin 81 mg daily, started Plavix 75 mg daily and atorvastatin increased from 20 mg to 40 mg daily at bedtime for stroke prophylaxis. 2. Chronic fatigue and insomnia, secondary to major depression disorder, present on admission. Stable. -Patient is not profoundly weak, therefore, she should not be bed bound for 20 years due to previous CVA?? Considering other etiologies such as treatment resistant major depression vs. adrenal insufficiency vs. vitamin D3 deficiency. -Ordered AM cortisol, pending. Plan to perform ACTH stim test tomorrow morning. -Ordered vit D3 level, pending. -Continue Remeron 15 mg daily. Consider switching to doxepin. Fluoxetine which is more of a stimulant antidepressant interferes with Plavix, therefore, not started as intended. Consider inpatient vs. outpatient psychiatric (and psychological) evaluation and continued treatment resistant MDD. -Started gabapentin 300 mg daily at bedtime to help with insomnia and possibly neuropathy. 3. Hypertension, chronic, present on admission. Stable. -Increased losartan from 25 to 50 mg daily to better control BP. May need to add additional antihypertensive. 4. Hypothyroidism, chronic, present on admission. Stable. -TSH low normal at 0.57. -Continue levothyroxine 75 mcg daily. 5. Hyperlipidemia, chronic, present on admission. Stable. -Fasting lipid panel demonstrated: Total cholesterol 103, triglycerides 594, LDL not performed, HDL 16. -Continue atorvastatin which was increased from 20 mg to 40 mg daily at bedtime. There is limited evidence that targeting hypertriglyceridemia improves CVD outcomes and high-intensity statin therapy will lower triglycerides by approximately 40%. Disposition: Likely to discharge in 1-2 days depending upon stroke and chronic fatigue evaluation and treatment. Quality VTE Deep Vein Thrombosis/Pulmonary Embolism Present on Admission: No
[2018-09-10 17:47] LABS: Hemoglobin A1C% w Est Avg Glu 5.3 % (4.0-6.0)
[2018-09-10 19:13] LABS: Cortisol AM (Before 10AM) < 0.16 ug/dL (4.46-22.7)
[2018-09-10] MEDS: ATORVASTATIN 20 MG TABLET 40 MG PO (21:46)
[2018-09-10] MEDS: hydrOXYzine pamoate 25 MG CAPSULE PO (21:46)
[2018-09-10] MEDS: GABAPENTIN 300 MG CAPSULE PO (21:46)
--- NOTE | 2018-09-11 00:50 | PC.NURSE ---
2300- Pt lying in bed resting. Scoring 0 on NIH assessments, pt states she has some slight tingling in her left arm and leg. Moving SBA to bathroom w/ FWW. Prev RN stated we need UA completed. Tele in place reading SR w/ 1st degree AVB. Directions in chart regarding pt's morning Cortisol Stimulation Test.
[2018-09-11 01:00] VITALS: BP 160/83; PULSE 78; RESP 15; TEMP 36.7; O2SAT 94
[2018-09-11 05:00] VITALS: BP 136/82; PULSE 74; RESP 16; TEMP 36.9; O2SAT 94
[2018-09-11] MEDS: PANTOPRAZOLE 20 MG TABLET PO (06:15)
[2018-09-11] MEDS: LEVOTHYROXINE 75 MCG TABLET PO (06:15)
[2018-09-11 07:00] VITALS: O2SAT 97
[2018-09-11] MEDS: COSYNTROPIN 0.25 MG VIAL IV (07:33)
[2018-09-11] MEDS: SODIUM CHLORIDE 0.9% FLUSH 10 ML IV (07:35)
[2018-09-11 07:49] LABS: Urine Amphetamines Negative (Negative); Urine Barbiturates Negative (Negative); Urine Benzodiazepines Negative (Negative); Urine Cocaine Negative (Negative); Urine MDMA Negative (Negative); Urine Methadone Negative (Negative); Urine Methamphetamines Negative (Negative); Urine Morphine/Opi cutoff 2000 Negative (Negative); Urine Oxycodone Negative (Negative); Urine Phencyclidine Negative (Negative); Urine Tetrahydrocannabinol Negative (Negative); Urine Tricyclic Antidepressant Negative (Negative)
[2018-09-11 08:37] LABS: Cortisol Random < 0.16 ug/dL
[2018-09-11] MEDS: ENOXAPARIN 40 MG/0.4 ML SYRINGE SUBCUT (08:45)
[2018-09-11] MEDS: ASPIRIN 81 MG TAB PO (08:48)
[2018-09-11] MEDS: CLOPIDOGREL 75 MG TABLET PO (08:48)
[2018-09-11] MEDS: MIRTAZAPINE 15 MG TABLET PO (08:50)
[2018-09-11] MEDS: LOSARTAN 25 MG TABLET 50 MG PO (08:51)
[2018-09-11 09:00] VITALS: BP 178/84; PULSE 78; RESP 18; TEMP 36.4; O2SAT 98
[2018-09-11 09:29] LABS: Cortisol Random 0.46 ug/dL
--- NOTE | 2018-09-11 10:03 | PM.DS.1 ---
History of Present Illness Date Patient Seen: 09/11/18 Chief complaint: right side face and body numbness and tingling Narrative: This is a 62-year-old chronically ill female who presents with approximately 36 hours of left-sided tingling and numbness. She has been ?bed ridden,? for 15 years according to her . She explains that she becomes too tired to do much and so just stays in bed. At 1 point she was thought to have sarcoid but that was apparently ruled out. They do not remember any workup for myasthenia. Yesterday morning she apparently began feeling tingling and numbness on the entirety of her left arm and left leg along with a small area on the left lower lip. She did not mention it to her until today. She has a prior history of stroke that she says caused facial drooping, she can't remember which side, which she says was diagnosed by her chiropractor. This was in approximately 1999. She is treated for hypertension and hyperlipidemia, she also has a family history of stroke and heart disease in her father. There has been no headache, seizure activity, vomiting, trouble talking, trouble walking, trouble swallowing. She takes her blood pressure and cholesterol medicine faithfully. Her insurance, [employer], has forced her to change her primary care physician to a new physician in [place], an hours drive away, who she has not seen yet, Dr. Nasra Burks. The head CT suggests a possible hyper attenuating foci in the bilateral frontal lobes. There are also bilateral chronic lacunar infarcts. Discharge Providers Date of admission: 09/08/18 17:15 Discharge Date: 09/11/18 Primary care physician: Jayleen Sheth DO Consults: 09/09/18 09:40 Consult to Occupational Therapy Evaluate & Treat Comment: Physician Instructions: Evaluate and treat Consult to Physical Therapy Evaluate & Treat Comment: Physician Instructions: Evaluate and Treat Consult to Speech Therapy Evaluate & Treat Comment: Physician Instructions: Evaluate and treat Discharge provider: Kirstin Starkey MD Summary Discharge Diagnosis: Adrenal Insufficiency, present on admission Acute CVA, Right Depression hyperlipidemia hypothyroidism hypertension GERD u Hospital Course: The patient is a 62-year-old female who was admitted to the hospital for right facial weakness. Patient was found to have a left-sided CVA. Patient had been bed-bound for years felt to be secondary to depression. She also complained of significant fatigue. She was seen by Physical therapy and Occupational therapy. It she was determined to be stable for return home. A Cortrosyn stem test was obtained during her hospital stay which was positive for adrenal insufficiency. Patient was started on prednisone 5 mg in the morning and 10 mg at night for adrenal insufficiency. The patient continued on her usual home medications. She was deemed appropriate for discharge home. The patient will follow up with her primary care physician for further evaluation. For depression the patient was started on antidepressant. Exam Vital Signs (past 8 hours): - 09/11/18 05:00 09/11/18 09:00 Temperature 98.4 F 97.5 F L Pulse Rate 74 78 Respiratory Rate 16 18 Blood Pressure 136/82 178/84 H Pulse Oximetry 94 98 Oxygen Delivery Method Room Air Oxygen Flow Rate 0 Narrative Exam Narrative: Pleasant female with a flat affect Lungs: Clear to auscultation Cardiac exam: Regular rate rhythm normal S1-S2 Abdomen: Soft nontender nondistended Extremities: No edema Neuro exam: Cranial nerves are intact, strength symmetric and equal, sensation grossly intact Objective Labs Result Diagrams: 09/10/18 04:38 09/10/18 04:38 Labs: Laboratory Results - last 24 hr 09/10/18 09/10/18 09/10/18 04:38 04:38 04:38 WBC 5.8 RBC 4.60 Hgb 12.3 Hct 35.4 L MCV 76.9 L MCH 26.7 MCHC 34.7 RDW 14.5 Plt Count 249 Neut % (Auto) 34.9 L Lymph % (Auto) 44.4 H [place] % (Auto) 8.9 Eos % (Auto) 10.6 H Baso % (Auto) 1.2 Neut # (Auto) 2000 Lymph # (Auto) 2600 [place] # (Auto) 500 Eos # (Auto) 600 H Baso # (Auto) 100 Sodium 138 Potassium 3.5 Chloride 105 Carbon Dioxide 24 BUN 10 Creatinine 0.50 L Estimated GFR > 60.0 BUN/Creatinine Ratio 20.0 Glucose 113 H Hemoglobin A1c Calcium 8.7 Magnesium 2.0 Triglycerides 594 H Cholesterol 103 L LDL Cholesterol, Calc TNP HDL Cholesterol 16 L Random Cortisol Cortisol AM Sample < 0.16 L Urine Opiates Screen Ur Oxycodone Screen Urine Methadone Screen Ur Barbiturates Screen U Tricyclic Antidepress Ur Phencyclidine Scrn Ur Amphetamines Screen U Methamphetamines Scrn Ur MDMA Scrn (Ecstasy) U Benzodiazepines Scrn Urine Cocaine Screen U Marijuana (THC) Screen 09/10/18 09/11/18 09/11/18 04:38 07:24 07:32 WBC RBC Hgb Hct MCV MCH MCHC RDW Plt Count Neut % (Auto) Lymph % (Auto) [place] % (Auto) Eos % (Auto) Baso % (Auto) Neut # (Auto) Lymph # (Auto) [place] # (Auto) Eos # (Auto) Baso # (Auto) Sodium Potassium Chloride Carbon Dioxide BUN Creatinine Estimated GFR BUN/Creatinine Ratio Glucose Hemoglobin A1c 5.3 Calcium Magnesium Triglycerides Cholesterol LDL Cholesterol, Calc HDL Cholesterol Random Cortisol < 0.16 Cortisol AM Sample Urine Opiates Screen Negative Ur Oxycodone Screen Negative Urine Methadone Screen Negative Ur Barbiturates Screen Negative U Tricyclic Antidepress Negative Ur Phencyclidine Scrn Negative Ur Amphetamines Screen Negative U Methamphetamines Scrn Negative Ur MDMA Scrn (Ecstasy) Negative U Benzodiazepines Scrn Negative Urine Cocaine Screen Negative U Marijuana (THC) Screen Negative 09/11/18 09/11/18 08:02 08:32 WBC RBC Hgb Hct MCV MCH MCHC RDW Plt Count Neut % (Auto) Lymph % (Auto) [place] % (Auto) Eos % (Auto) Baso % (Auto) Neut # (Auto) Lymph # (Auto) [place] # (Auto) Eos # (Auto) Baso # (Auto) Sodium Potassium Chloride Carbon Dioxide BUN Creatinine Estimated GFR BUN/Creatinine Ratio Glucose Hemoglobin A1c Calcium Magnesium Triglycerides Cholesterol LDL Cholesterol, Calc HDL Cholesterol Random Cortisol 0.40 0.46 Cortisol AM Sample Urine Opiates Screen Ur Oxycodone Screen Urine Methadone Screen Ur Barbiturates Screen U Tricyclic Antidepress Ur Phencyclidine Scrn Ur Amphetamines Screen U Methamphetamines Scrn Ur MDMA Scrn (Ecstasy) U Benzodiazepines Scrn Urine Cocaine Screen U Marijuana (THC) Screen Discharge Plan Discharge Plan Patient Disposition: Home Discharge Med Rec/Prescriptions Prescriptions: New atorvastatin [Lipitor] 20 mg Tablet 40 mg PO BEDTIME Qty: 30 RF: 0 clopidogrel 75 mg Tablet 75 mg PO DAILY Qty: 30 RF: 0 losartan 25 mg Tablet 50 mg PO DAILY Qty: 30 RF: 0 gabapentin [Neurontin] 300 mg Capsule 300 mg PO BEDTIME 30 Days RF: 0 prednisone 10 mg tablet 10 mg PO DAILY MDD 5mg in the morning, 10 mg at n Qty: 30 RF: 0 prednisone 5 mg tablet 5 mg PO DAILY Qty: 30 RF: 0 Continued aspirin [Aspirin Low Dose] 81 mg Tablet,Delayed Release (Dr/Ec) 81 mg PO DAILY Qty: 0 RF: 0 calcium carbonate 500 MG tablet 1,500 mg PO QDAY Qty: 0 RF: 0 loratadine [Claritin] 10 MG tablet 10 mg PO QDAY Qty: 0 RF: 0 omeprazole 20 mg capsule,delayed release(DR/EC) 20 mg PO QDAY Qty: 30 RF: 2 levothyroxine [Synthroid] 75 mcg tablet 75 mcg PO QAM Qty: 30 RF: 2 hydroxyzine pamoate 25 mg capsule 25 mg PO .hs Qty: 30 RF: 0 mirtazapine 15 mg tablet 15 mg PO DAILY RF: 0 oxybutynin chloride 15 mg tablet extended release 24hr 15 mg PO DAILY RF: 0 Discontinued losartan 25 mg Tablet 25 mg PO DAILY RF: 0 atorvastatin 20 mg Tablet 20 mg PO DAILY RF: 0 Follow up/Referrals: nasra burks [Other] - 09/19/18 10:00 am (fax:[phone]) Provider Discharge Instructions Diet: Diet as Tolerated, Low-sodium and Low-cholesterol Activity: as tolerated Skin/Wound/Dressing Care Report to your healthcare provider any signs of infection, such as:: chills, fever and night sweats Visit Report/Discharge Packet Visit Report Forms: Stroke Signs & Symptoms Discharge Data Primary Care Provider: Jayleen Sheth Attending Provider: Nisha Alexis Admit Date/Time: 09/08/18 17:15 Discharges patient from system. Discharge Date/Time: 09/11/18 11:18 Quality VTE Deep Vein Thrombosis/Pulmonary Embolism Present on Admission: No
--- NOTE | 2018-09-11 10:36 | OT.IP.TRT ---
Current Diagnoses Cerebral infarction, unspecified (09/08/18) Occupational Therapy Treatment Note M2 OT-IP Current Condition Start: 09/09/18 16:51 Freq: Status: Active Protocol: Document 09/09/18 16:51 [facility] (Rec: 09/09/18 17:10 [facility] [id number]) Occupational Therapy Current Condition Current Condition Evaluation Date 09/09/18 Treatment Diagnosis Left sided weakness and numbness. M3 OT- IP Subjective and Pain Start: 09/09/18 16:51 Freq: Status: Active Protocol: Document 09/11/18 09:54 [facility] (Rec: 09/11/18 10:36 [facility] [id number]) OT- Subjective Occupational Therapy Visit Type Type Treatment Note Visit Start Time 09:05 Visit Stop Time 09:50 Total Visit Minutes 45 Occupational Therapy Visit Comments Patient Comments Pt agreeable to shower, pt's present for session to assist. Patient/Caregiver Goals To go home. OT Pain Assessment Pain When Pain Assessed At Rest Pain Present Pain Present Denied Pain M4 OT- IP ADL's Start: 09/09/18 16:51 Freq: Status: Active Protocol: Document 09/11/18 09:54 [facility] (Rec: 09/11/18 10:36 [facility] [id number]) OT ADL-Grooming General Evaluation Grooming Ability Standby Assistance Areas Needing Assistance Retrieving/Set-up of Grooming Items Comments OT Grooming Comments After set-up pt able to do all grooming needs. OT ADL-Dressing General Eval Lower Body Dressing Ability Moderate Assistance Areas Needing Assistance Underpants/Brief Socks Comments OT Dressing Comments Pt needing CGA while standing to elizabeth brief over hips. Pt able to independently doff socks while in sitting. Pt's able to assist pt to elizabeth socks as getting tired after shower. OT ADL-Toileting General Evaluation Toileting Ability Independent Devices Toileting Assistive Devices Grab Bars OT ADL-Bathing Bathing Type Bathing Type Shower General Evaluation Bathing Ability Moderate Assistance Areas Needing Assistance Retrieving/Setting Up Items Wash/Dry Back Devices Bathing Equipment Hand Held Shower Sprayer Shower Chair without Arms Grab Bars Comments OT Bathing Comments Pt able to do most of showering while standing and then needing to sit after getting tired to shower chair. Pt's having to assist to wash/dry pt's back and hair as pt has very long hair. M5 OT- IP IADL's Start: 09/09/18 16:51 Freq: Status: Active Protocol: Document 09/09/18 16:51 [facility] (Rec: 09/09/18 17:10 [facility] [id number]) OT-Instrumental Activities of Daily Living Meal Preparation Meal Preparation Comments Pt states assists. Log Deck Tender Log Deck Tender Caregiver Provides Assist Driving Driving Caregiver Provides Assist M6 OT- IP Functional Cognition Start: 09/09/18 16:51 Freq: Status: Active Protocol: Document 09/11/18 09:54 [facility] (Rec: 09/11/18 10:36 [facility] [id number]) Cognitive Factors Limiting Selfcare Function Cognitive Ability Level of Alertness Alert Patient Orientation Name Age Birthday Month Date Year Day of Week Place Situation Attention Span Ability Capable of Focused Attention Capable of Sustained Attention Ability to Follow Commands Able to Follow One Step Commands Memory Description Short Term Impaired Safety Awareness Underestimates Need for Assistance Problem Solving Ability Needs Assist to Identify Solutions Executive Function Ability Unable to Make Plans Unable to Remember Details Cognitive Comments Cognitive Assessment Comments Pt has difficulty with initiation tasks. Pt states just has a hard time getting started but once begins a task does okay. Educated pt and to set a schedule for showering and have present to help as needed. M7 OT- IP Mobility and Balance Start: 09/09/18 16:51 Freq: Status: Active Protocol: Document 09/11/18 09:54 [facility] (Rec: 09/11/18 10:36 [facility] [id number]) OT- Bed Mobility Assessment Supine to Sit Supine to Sit Assist Independent Sit to Supine Sit to Supine Assist Independent OT-Transfer Assessment Sit to and From Stand Sit to and from Stand Standby Assistance Contact Guard Assistance Transfers Transfer Ability Standby Assistance Contact Guard Assistance Technique Transfer Destination Bed Shower Stall Toilet Devices Transfer Assistive Devices None Gait Belt Comments Mobility Comments Pt when tires needs CGA for balance especailly while stepping over threshold of the shower. OT- Gait Assessment Comments Gait Ability Comments Pt continues to walk with felxed posture of trunk and neck. OT- Balance Assessment Sitting Balance and Reactions Static Sitting Balance Ability Normal Dynamic Sitting Balance Ability Good Standing Balance and Reactions Static Standing Balance Ability Good Dynamic Standing Balance Ability Fair Pt able to stand with foot up on the shower chair to wash as able to hld onto her with CGA for balance and then realized as tiring to sit on the shower chair to lean forwards and wash her feet. M8 OT- IP Objective Assessments Start: 09/09/18 16:51 Freq: Status: Active Protocol: Document 09/10/18 13:03 [facility] (Rec: 09/10/18 13:16 [facility] [id number]) OT Gross Range of Motion Upper Extremity Range of Motion Assessment Left Impaired ROM Impairments AROM shoulder flexion 95% of RUE. M9 OT- IP Assessment and Plan Start: 09/09/18 16:51 Freq: Status: Active Protocol: Document 09/11/18 09:54 [facility] (Rec: 09/11/18 10:36 [facility] [id number]) OT Summary Assessment and Plan Potential Rehabilitation Potential Good Analytic Complexity at Evaluation Low Summary OT Impairments Range of Motion Strength Sensation Functional Mobility Bathing Progress Towards Goals Progressing Toward Goals Assessment Summary Pt looking to go home when medically stable and to assist as needed. Goals Grooming Goal Independent Dressing Goal Independent Toileting Goal Independent Bathing Goal Standby Assistance Toilet Transfer Goal Independent Shower Transfer Goal Standby Assistance Patient/Caregiver Education Goal Caregiver Independent Assisting Patient Days to Meet Goals 1 Frequency of Treatment Frequency Of Treatment Once a Day Treatment Plan OT Treatment Plan ADL Training Functional Mobility Patient/Family Education Discharge Planning Discharge Recommendations OT Discharge Recommendations Home with Assistance Outpatient PT Home Equipment Needs 4WW
[2018-09-11] MEDS: OXYBUTYNIN 5 MG ER TAB 15 MG PO (10:54)
--- NOTE | 2018-09-11 11:53 | PT.IPTN ---
Current Diagnoses Cerebral infarction, unspecified (09/08/18) Physical Therapy Treatment Note M2 PT-IP Current Condition Start: 09/09/18 15:48 Freq: NEEDED Status: Discharge Protocol: Document 09/09/18 13:50 HH (Rec: 09/09/18 16:31 HH [id number]) Physical Therapy Current Condition Current Condition Evaluation Date 09/09/18 Treatment Diagnosis L sided weakness, impaired gait and activity tolerance Onset Date 09/08/18 Weight Bearing Status Weight Bearing Status Weight Bear as Tolerated M3 PT-IP Subjective Start: 09/09/18 15:48 Freq: NEEDED Status: Discharge Protocol: Document 09/11/18 11:45 SA (Rec: 09/11/18 11:53 SA [id number]) Subjective Physical Therapy Visit Type Type Treatment Note Visit Start Time 10:22 Visit Stop Time 10:58 Total Visit Minutes 36 Number of TWISTER HAND Visits 3 Physical Therapy Visit Comments Patient Comments Pt agreeable to PT, in room preparing for d/c. Therapy Pain Assessment Pain When Pain Assessed During Mobility Pain Present Pain Present Denied Pain M4 PT-IP Mobility and Gait Start: 09/09/18 15:48 Freq: NEEDED Status: Discharge Protocol: Document 09/11/18 11:45 SA (Rec: 09/11/18 11:53 SA [id number]) PT-Bed Mobility Assessment Rolling Type of Rolling Roll to Left Level of Assist Standby Assistance Supine to Sit Supine to Sit Standby Assistance Head of Bed Elevated Sit to Supine Sit to Supine Standby Assistance Head of Bed Elevated Scooting Scooting to Edge of Bed Standby Assistance Scooting Up and Down in Bed Standby Assistance PT-Transfer Assessment Sit to and From Stand Sit to and from Stand Standby Assistance Equipment Transfer Assistive Device None Gait Belt Straight Cane Transfers Transfer Destination Bed Chair Transfer Technique Stand Step Pivot Transfer Ability Level of Assist Standby Assistance Comments Mobility Comments PT SBA with all obility but needs cues to increase LUE use , does well with SPC but has difficulty initiating activity . Gait Assessment Gait Gait Assistance Required: Standby Assistance Distance (Feet) 120 Assistive Devices Assistive Device Gait Belt Straight Cane Orthotic/Prosthetic Devices or Brace: No Gait Deviations General Gait Pattern Antalgic Decreased Stride Length Decreased Feet Clearance Flexed Trunk Factors Limiting Gait Function Factors Limiting Gait Function Decreased Activity Tolerance Decreased Strength Limited Range of Motion Poor Balance Poor Safety Awareness Comments Gait Comments Gait training with SBA and SPC for 60 + 60 feet, cues for upright posture. Pt fatigues rapidly. M5 PT-IP Objective Assessments Start: 09/09/18 15:48 Freq: NEEDED Status: Discharge Protocol: Document 09/09/18 13:50 HH (Rec: 09/09/18 16:31 [id number]) Orientation Orientation/Cognition Level of Alertness Alert Orientation Name Age Birthday Month Date Year Day of Week Place Situation Language Function Ability No Deficits Noted Safety Awareness Understands Safety Issues Memory Description No Deficits Noted Gross Range of Motion Upper Extremity ROM Assessment Left Impaired Impairments LUE flexion= 90% of R side. Lower Extremity ROM Assessment Left Impaired Impairments noticeable limited AROM of L ankle DF, EV, INV and digital flexion. Strength Upper Extremity Strength Assessment Left Impaired Lower Extremity Strength Assessment Left Impaired Comments Strength Comments noticeable L UE and L LE weakness (distal > proximal) L UE 4-/5 R UE 4+/5 L LE 3+/5 R LE 4-/5 Coordination Assessment Gross Coordination Gross Coordination Impaired Assessment Finger to Nose Test Minimal Impairment Pronation/Supination Test Minimal Impairment Coordination Comments intact for accuracy but increased time taken Sensation Assessment Sensation Gross Sensation Left UE Impaired Left LE Impaired Light Touch Impaired Proprioception (Position) Impaired Sensation Description Numbness Tingling Comments Sensation Comments Pt c/o overall decreased sensitivity to light touch ( distal > proximal) on both L UEs and LEs. Increased processing time for proprioception test but able to accurately verbalize body positioning. Muscle Tone Muscle Tone WNL Yes M6 PT-IP Treatment Start: 09/09/18 15:48 Freq: NEEDED Status: Discharge Protocol: Document 09/11/18 11:45 (Rec: 09/11/18 11:53 [id number]) Physical Therapy Treatment Exercises Exercises Gluteal Sets Quad Sets Seated Knee Flexion/Extension Education Education Provided Safety Other Treatments Other Treatment Performed HEP provided for patient and with UE and LE exercises to perform at home. M7 PT-IP Assessment and Plan Start: 09/09/18 15:48 Freq: NEEDED Status: Discharge Protocol: Document 09/11/18 11:45 (Rec: 09/11/18 11:53 [id number]) PT Summary Assessment and Plan Summary Assessment Summary Pt to d/c today with follow up MD appt and OP PT. home to provide care. Pt with poor initiation and difficult to motivate. Frequency of Treatment Frequency Of Treatment Twice a Day Treatment Plan Physical Therapy Treatment Plan Bed Mobility Training Transfer Training Gait Training Therapeutic Exercise Balance Retraining Discharge Planning Neuromuscular Re-ed Recommendations To Nursing Amount of Assist Needed Standby Assistance Discharge Recommendations PT Discharge Recommendations Home with Assistance Other Discharge Recommendations OP PT
[2018-09-14 11:52] LABS: 1 25 Dihydroxy Vitamin D 46 pg/mL (18-72)
== END 2018-09-11 11:18 | disposition home or self-care (01) | DRG 65 ==
LOC: ED 16:51 → AC 09-09 07:16
PROVIDERS: Internal Medicine; Admitting Provider Family Medicine; Emergency Provider Emergency Medicine; PCP Family Medicine; Visit Provider Family Medicine
DX: I63.9 Cerebral infarction, unspecified (principal); E27.40 Unspecified adrenocortical insufficiency; R20.0 Anesthesia of skin; I69.398 Other sequelae of cerebral infarction; Z74.01 Bed confinement status; I10 Essential (primary) hypertension; E03.9 Hypothyroidism, unspecified; E78.2 Mixed hyperlipidemia; G47.00 Insomnia, unspecified; R53.82 Chronic fatigue, unspecified
CPT/HCPCS: 36415; 36591; 70450; 70553; 80048; 80061; 80305; 82533; 82652; 83036; 83735; 84443; 85025; 85610; 85730; 92610; 93005; 93010; 93306; 96360; 96361; 97110; 97116; 97161; 97165; 97530; 97535; 99284; 99285; 99291; A9579; J0834; J1650